=== PATIENT | female | born 1940 | race Caucasian/White ===

== ENCOUNTER → 2017-09-08 07:00 | Outpatient (CLI) | payer MEDICARE, SELFPAY ==
[2017-09-08 07:36] LABS: Absolute Lymphocyte Count 1.87 X10^3/ul (0.83-4.51); Absolute Neutrophil Count 3.3 X10^3/uL (2.0-7.7); Basophil# 0.01 X10^3/uL; Basophil% 0.2 % (0-1); Eosinophil# 0.13 X10^3/uL; Eosinophils% 2.3 % (0-5); Hematocrit 42.3 % (37-47); Hemoglobin 13.7 g/dl (12.0-15.0); Lymphocyte # 1.87 X10^3/ul (4.0); Lymphocyte % 33.2 % (19-41); Mean Corp Hgb Conc 32.4 g/gl (32-36); Mean Corpuscular Hgb 29.3 pg (27.0-32.0); Mean Corpuscular Volume 90.4 fL (81-99); Mean Platelet Vol. 10.2 fl (6.2-12.0); Monocyte# 0.34 X10^3/uL; Neutrophil # 3.28 X10^3/uL (2.7-7.7); Neutrophil % 58.3 % (47-70); Platelet Count 183 K/mm3 (150-450); RBC Distribution Width CV 13.3 % (11.6-14.6); RBC Distribution Width SD 43.6 fl (35.1-43.9); Red Blood Count 4.68 M/mm3 (4.2-5.4); White Blood Count 5.6 K/mm3 (4.4-11.0)
[2017-09-08 07:46] LABS: POSITIVE COUNT NO; POSITIVE DIFFERENTIAL NO; POSITIVE MORPHOLOGY NO
[2017-09-08 08:06] LABS: Hemoglobin A1c 6.1 % (4.2-6.3)
[2017-09-08 08:11] LABS: ALB/GLOB Ratio 1.1 RATIO (0.9-2.4); AST(SGOT) 16 U/L (15-37); Alanine Aminotransfer ALT/SGPT 30 U/L (13-56); Albumin, Serum 3.7 g/dL (3.2-5.0); Alkaline Phosphatase 125 U/L (45-117); Anion Gap 7 (5-15); BUN 18 mg/dL (7-18); Calcium,Total 8.9 mg/dL (8.5-10.1); Chloride 106 mmol/L (98-107); Cholesterol 182 mg/dL (200); EST Glomerular Filtration Rate 65 mL/min (>60); Est Glom Filt Rate - Afr Amer 78 mL/min (>60); Globulin 3.5 g/dL (2.2-4.2); Glucose 101 mg/dL (74-106); High Density Lipoprotein 46 mg/dL; Protein, Total 7.2 g/dL (6.4-8.2); Sodium Level 139 mmol/L (136-145); Thyroid Stim Hormone (TSH) 2.37 uIU/mL (0.358-3.74); Triglycerides 179 mg/dL; Very Low Density Lipoprotein 36 mg/dL (5-40)
[2017-09-10 09:57] LABS: Vitamin D,25 Hydroxy 19.5 ng/mL (29.95-100.01)
[2017-09-17 16:10] LABS: Alkaline Phosphatase, Serum 113 IU/L (39-117); Bone Fraction 51 % (14-68); Liver Fraction 47 % (18-85)
[2017-09-17 16:41] LABS: Intestinal Fraction 1 % (0-18)
== END ==
PROVIDERS: Family Provider Physician Assistant; PCP Physician Assistant; Visit Provider Physician Assistant
DX: E78.5 Hyperlipidemia, unspecified (principal); E55.9 Vitamin D deficiency, unspecified; R73.03 Prediabetes; Z79.899 Other long term (current) drug therapy
CPT/HCPCS: 36415; 80053; 80061; 82306; 83036; 84075; 84080; 84443; 85025

== ENCOUNTER → 2017-12-21 09:51 | Outpatient (CLI) | payer MEDICARE, SELFPAY ==
[2017-12-21 10:40] LABS: Alkaline Phosphatase 112 U/L (45-117)
== END ==
PROVIDERS: Family Provider Physician Assistant; PCP Physician Assistant; Visit Provider Physician Assistant
DX: R74.8 Abnormal levels of other serum enzymes (principal)
CPT/HCPCS: 36415; 84075

== ENCOUNTER → 2018-03-07 06:41 | Outpatient (CLI) | payer MEDICARE, SELFPAY ==
[2018-03-07 07:48] LABS: BUN 20 mg/dL (7-18); Creatinine, Serum 0.86 mg/dL (0.55-1.02); Glucose 102 mg/dL (74-106)
[2018-03-07 07:49] LABS: ALB/GLOB Ratio 1.1 RATIO (0.9-2.4); AST(SGOT) 14 U/L (15-37); Alanine Aminotransfer ALT/SGPT 25 U/L (13-56); Albumin, Serum 3.7 g/dL (3.2-5.0); Alkaline Phosphatase 98 U/L (45-117); Anion Gap 8 (5-15); BUN/Creat Ratio 23.3 RATIO (10-20); Calcium,Total 8.7 mg/dL (8.5-10.1); Chloride 104 mmol/L (98-107); Cholesterol 216 mg/dL (200); EST Glomerular Filtration Rate 68 mL/min (>60); Est Glom Filt Rate - Afr Amer 82 mL/min (>60); Globulin 3.5 g/dL (2.2-4.2); High Density Lipoprotein 58 mg/dL; Protein, Total 7.2 g/dL (6.4-8.2); Sodium Level 138 mmol/L (136-145); Triglycerides 191 mg/dL; Very Low Density Lipoprotein 38 mg/dL (5-40)
[2018-03-07 07:55] LABS: Hemoglobin A1c 5.9 % (4.2-6.3)
[2018-03-07 08:55] LABS: Vitamin D,25 Hydroxy 54.6 ng/mL (29.95-100.01)
== END ==
PROVIDERS: Family Provider Physician Assistant; PCP Physician Assistant; Referring Provider Physician Assistant; Visit Provider Physician Assistant
DX: E55.9 Vitamin D deficiency, unspecified (principal); E78.2 Mixed hyperlipidemia; R73.03 Prediabetes
CPT/HCPCS: 36415; 80053; 80061; 82306; 83036

== ENCOUNTER → 2018-04-06 07:53 | Outpatient (CLI) | payer MEDICARE, SELFPAY ==
[2018-04-05 13:52] VITALS: BMI 32.3
== END ==
PROVIDERS: Family Provider Physician Assistant; PCP Physician Assistant; Referring Provider Surgery; Visit Provider Surgery
DX: Z12.11 Encounter for screening for malignant neoplasm of colon (principal)
CPT/HCPCS: 82274

== ENCOUNTER → 2020-02-11 14:44 | Outpatient (CLI) | payer MEDICARE, SELFPAY ==
[2018-09-04 09:05] VITALS: BMI 32.8
--- NOTE | 2020-02-11 14:55 | CT_ITS ---
STUDY: CT UPPER EXTREMITY WITHOUT CONTRAST INJECTION RIGHT REASON FOR EXAM: Female, 79 years old. PAIN AND IMMOBILITY. RADIATION DOSAGE (If Supplied By Facility): CTDIvol = ( 24.58 ) mGy, DLP = ( 511.44 ) mGycm. Individualized dose optimization techniques were used for this CT.? TECHNIQUE: Optimal axial images of the wrists were obtained from the distal radius and ulna to the metacarpophalangeal joints. Sagittal coronal reformatted images are performed. COMPARISON: None. FINDINGS: The bones are osteopenic. There is mild degenerative change within the radial carpal joint. There is subchondral cyst formation at the distal radius. The radial ulnar joint appears grossly normal. On the sagittal view there is partial visualization of what appears to be chondrocalcinosis or partial calcification of the joint space. This is seen on image #31. The carpal bones show evidence of degenerative change. Within the knee and the scaphoid joint space there are visualized small subchondral cysts. There is mild degenerative change at the first carpometacarpal joint. There is also narrowing of the trapezoid with the second digit. On the sagittal view there is a cleft and/or age-indeterminate possible prior fracture of the ventricular atrium only seen on the sagittal view image #34. There is mild soft tissue edema at the level of the digit without evidence of underlying focal fluid collection. The soft tissues, ligaments and visualized tendons show no visualized evidence of fluid collection or obvious enlargement. CT/Extremity Upper without Contra IMPRESSION: Question the possibility of prior triquetral fracture. Recommend consideration for follow-up MRI. Degenerative change of the radiocarpal joint which can be associated with rheumatoid arthritis and/or osteoarthritis appropriate setting. There is a subtle visualization of calcification at the wrist joint which could represent chondrocalcinosis which can be associated with arthritides such as pyrophosphate disease or hypercalcemic states and associated with osteoarthritis and/or the aging process. Electronically Signed: Ayah Razo MD at 6:09 EDT Tel , Service support ,
== END ==
PROVIDERS: PCP Physician Assistant; Referring Provider Physician Assistant; Visit Provider Physician Assistant
DX: M25.531 Pain in right wrist (principal); M81.0 Age-related osteoporosis without current pathological fracture
CPT/HCPCS: 73200

== ENCOUNTER → 2020-03-06 06:57 | Outpatient (CLI) | payer MEDICARE, SELFPAY ==
[2018-09-04 09:05] VITALS: BMI 32.8
[2020-03-06 08:52] LABS: ALB/GLOB Ratio 1.1 RATIO (0.9-2.4); AST(SGOT) 17 U/L (15-37); Alanine Aminotransfer ALT/SGPT 40 U/L (13-56); Albumin, Serum 3.8 g/dL (3.2-5.0); Alkaline Phosphatase 100 U/L (45-117); Anion Gap 6 (5-15); BUN 15 mg/dL (7-18); BUN/Creat Ratio 16.7 RATIO (10-20); Calcium,Total 9.1 mg/dL (8.5-10.1); Chloride 103 mmol/L (98-107); Cholesterol 188 mg/dL (200); EST Glomerular Filtration Rate 64 mL/min (>60); Est Glom Filt Rate - Afr Amer 78 mL/min (>60); Globulin 3.6 g/dL (2.2-4.2); Glucose 95 mg/dL (74-106); High Density Lipoprotein 55 mg/dL; Potassium 3.9 mmol/L (3.5-5.1); Protein, Total 7.4 g/dL (6.4-8.2); Sodium Level 136 mmol/L (136-145); Triglycerides 201 mg/dL; Very Low Density Lipoprotein 40 mg/dL (5-40)
[2020-03-06 09:29] LABS: Vitamin D,25 Hydroxy 47.6 ng/mL
[2020-03-06 12:12] LABS: Hemoglobin A1c 5.8 % (3.8-5.6)
== END ==
LOC: LAB.FUTURE 06:58 → LAB 09-05 00:18
PROVIDERS: PCP Physician Assistant; Referring Provider Physician Assistant; Visit Provider Physician Assistant
DX: R73.03 Prediabetes (principal); M51.36 Other intervertebral disc degeneration, lumbar region; M17.31 Unilateral post-traumatic osteoarthritis, right knee; E78.2 Mixed hyperlipidemia; E55.9 Vitamin D deficiency, unspecified
CPT/HCPCS: 36415; 80053; 80061; 82306; 83036

== ENCOUNTER → 2020-04-08 10:38 | Outpatient (CLI) | payer MEDICARE, SELFPAY ==
[2020-03-23 08:35] VITALS: BMI 34.2
--- NOTE | 2020-04-08 10:41 | ECHOCS_ITS ---
Version 2 Reason For Study: HYPERTENSION Procedure This was a 2D Doppler, Color Flow transthoracic echocardiogram. The study was technically difficult. Exam performed in department. Left Ventricle Normal LV size. Left ventricular systolic function is normal. The estimated ejection fraction is 65 %. Stage 1 diastolic dysfunction. Right Ventricle Normal RV size. Normal systolic function. Atria Normal left atrium. Normal right atrium. Mitral Valve Normal mitral valve. Tricuspid Valve Normal tricuspid valve. Mild tricuspid valve insufficiency. Pulmonary artery systolic pressure is 25 mmHg. Aortic Valve The aortic valve is not well visualized. Pulmonic Valve Normal pulmonic valve. Great Vessels Normal aortic root. The pulmonary artery is normal size. Normal inferior vena cava. Pericardium/Pleural No pericardial effusion. Medication 22 gauge I.V. with prn adaptor inserted into left arm. Diluted definity 6ml given slow IV push to enhance endocardial definition. MMode/2D Measurements & Calculations LVIDd: 4.6 cm IVSd: 0.97 cm Ao root diam: 3.1 cm LVIDs: 3.1 cm LVPWd: 1.0 cm RVDd: 3.5 cm FS: 31.9 % LAV(MOD-bp): 42.3 ml LVAd ap4: 18.7 cm2 SV(MOD-sp4): 32.4 ml LAV(MOD-bp) Indexed: 20.7 ml/m2 EDV(MOD-sp4): 49.5 ml LAV(MOD-sp2): 43.4 ml EDV(sp4-el): 51.2 ml LAV(MOD-sp4): 37.3 ml LVAs ap4: 10.2 cm2 ESV(MOD-sp4): 17.1 ml ESV(sp4-el): 17.0 ml EF(MOD-sp4): 65.4 % EF(sp4-el): 66.9 % SV(sp4-el): 34.2 ml LA A4 area: 15.5 cm2 LA dimension(2D): 4.2 cm RA A4 area: 15.5 cm2 Time Measurements MV dec time: 0.22 sec Doppler Measurements & Calculations MV E max redd: 49.1 cm/sec Lat Peak E' Redd: 11.1 cm/sec Med Peak E' Redd: 6.0 cm/sec MV A max redd: 62.7 cm/sec E/E' lat: 4.4 E/E' med: 8.2 MV E/A: 0.78 Ao V2 max: 120.7 cm/sec LV V1 max: 73.5 cm/sec PA V2 max: 79.7 cm/sec Ao max P.8 mmHg LV V1 max P.2 mmHg PI end-d redd: 84.0 cm/sec TR max redd: 236.7 cm/sec TR max P.4 mmHg Interpretation Summary Normal LV size. Left ventricular systolic function is normal. The estimated ejection fraction is 65 %. Stage 1 diastolic dysfunction. Pulmonary artery systolic pressure is 25 mmHg. Contrast injection was performed. Ordering Physician: Bakari Mcfarland Referring Physician: JOSEPH COON Performed By: Judy Sandoval RDCS
== END ==
PROVIDERS: PCP Physician Assistant; Referring Provider Internal Medicine Cardiovascular Disease; Visit Provider Internal Medicine Cardiovascular Disease
DX: R94.31 Abnormal electrocardiogram [ECG] [EKG] (principal); I10 Essential (primary) hypertension
CPT/HCPCS: 93306; Q9957; A4216; C8929

== ENCOUNTER 2020-06-26 09:00 | Inpatient (IN) | payer MEDICARE, SELFPAY ==
[2020-03-23 08:35] VITALS: BMI 34.2
[2020-06-26] VITALS (11 sets, daily range): BP systolic 125–162; BP diastolic 54–70; PULSE 87–104; RESP 16–28; TEMP 36.6–37.3; O2SAT 86–97; BMI 32.1; BMI 29.5
--- NOTE | 2020-06-26 09:36 | EKG12_ITS ---
Test Reason : Blood Pressure : / mmHG Vent. Rate : 088 BPM Atrial Rate : 088 BPM P-R Int : 194 ms QRS Dur : 084 ms QT Int : 360 ms P-R-T Axes : 039 -11 016 degrees QTc Int : 435 ms Normal sinus rhythm Minimal voltage criteria for LVH, may be normal variant Borderline ECG Confirmed by ZACK GUEVARA, YAN ([id number]), newspaper copy editor LILLY DE LA ROSA ([id number]) on 06/29/2020 8:17:27 AM Referred By: RINA Confirmed By:YAN DIXON MD
--- NOTE | 2020-06-26 09:36 | RAD_ITS ---
STUDY: X-RAY CHEST REASON FOR EXAM: Female, 79 years old. covid positive TECHNIQUE: Single AP portable view of the chest. COMPARISON: 05/22/2011 FINDINGS: The lungs are clear and expanded. There is no demonstrated pleural abnormality. Normal size heart. Normal mediastinum and jeffrey. Normal visualized pulmonary arteries. Normal visualized aortic arch and descending thoracic aorta. Normal visualized thoracic spine. Normal visualized ribs, clavicles, and shoulders. There is no demonstrated abnormality of the visualized soft tissue structures of the upper abdomen. RAD/Chest 1 View (Portable) IMPRESSION: Normal x-ray examination of the chest. Electronically Signed: Carlton Guerra MD at 11:04 EST Tel , Service support ,
--- NOTE | 2020-06-26 10:39 | ED.VISSUMM ---
- ER Visit Summary Date of Service: 06/26/20 Chief Complaint: Fever History of Present Illness: The patient is a 79 F who presents with fever, nausea, vomiting, diarrhea, and weakness that has been getting worse over the past 1-1/2 weeks. Patient states she has been having some generalized weakness. Patient states she has been having some watery diarrhea. Patient states her fever has been up to 101 at home. Patient also admits to subjective chills. Patient admits to a cough with some johnson sputum. Patient denies any chest pain. Patient denies any shortness of breath. Physical Examination: Vital signs are stable. Patient is afebrile. Patient is in no acute distress. Oral mucosa is pink and moist. Neck is supple. Trachea is midline. There is no JVD noted. Heart was regular rate and rhythm. Lungs are clear diminished in the bases bilaterally. Abdomen is soft. Bowel sounds are normal. There is no tenderness. There is no rebound or guarding noted. Skin is warm dry. Cranial nerves II through XII are intact. There are no focal motor or sensory deficits noted. Extremities are intact. There is no calf tenderness or edema. Test Results: EKG was obtained. On my interpretation, there is a normal sinus rhythm with a rate of 88. There are no acute ST or T wave changes. Portable 1 view chest x-ray was obtained. On my interpretation, lung schumacher are clear. There is normal cardiac silhouette. Bony thorax is normal. There is no acute process noted.. Radiologist also interpreted the x-ray and agrees. CBC shows a white blood cell count of 2.9 and a platelet count of 124. Comprehensive metabolic profile was essentially within normal limits. Lactate was Emergency Department Course and Treatment: Patient was given albuterol inhaler here. Patient was given 500 cc bolus of normal saline. Patient's pulse oximeter on room air dropped to 86% while lying in bed. Patient was given a dose of Decadron. Case was discussed with the hospitalist, Dr Ibanez. He will admit the patient to his service. Patient understood and was agreeable with the plan. All questions were answered. Disposition: Admit to hospital Impression: 1. COVID-19 2. Hypoxia This note was generated with worldhistoryprojectation software. It may contain incorrect words, spelling, and punctuation that were not noted in review of the chart prior to signing ED Disposition - Plan for ED Patient: Disposition: Acute Care Hospital [facility] Diagnosis: COVID-19, Hypoxia Referrals: Valerie Garcia, PA [Primary Care Provider] -
[2020-06-26] MEDS: Acetaminophen 500 MG Tablet 1000 MG PO (11:05)
[2020-06-26 11:55] LABS: Absolute Lymphocyte Count 0.42 X10^3/uL (0.83-4.51); Absolute Neutrophil Count 2.2 X10^3/uL (2.0-7.7); Hematocrit 37.1 % (37-47); Hemoglobin 12.2 g/dL (12.0-15.0); Lymphocyte # 0.42 X10^3/ul (4.0); Lymphocyte % 14.7 % (19-41); Mean Corp Hgb Conc 32.9 g/dL (32-36); Mean Corpuscular Hgb 29.2 pg (27.0-32.0); Mean Corpuscular Volume 88.8 fL (81-99); Mean Platelet Vol. 10.3 fl (6.2-12.0); NRBC Flagged by Analyzer 0 % (0-5); Neutrophil # 2.22 X10^3/uL (2.7-7.7); Neutrophil % 77.6 % (47-70); POSITIVE DIFFERENTIAL YES; Platelet Count 124 K/mm3 (150-450); RBC Distribution Width CV 13.1 % (11.6-14.6); RBC Distribution Width SD 42.8 fl (35.1-43.9); Red Blood Count 4.18 M/mm3 (4.2-5.4); White Blood Count 2.9 K/mm3 (4.4-11.0)
[2020-06-26 11:56] LABS: Differential Indicated SCAN CRITERIA MET
[2020-06-26 12:16] LABS: ALB/GLOB Ratio 0.9 RATIO (0.9-2.4); AST(SGOT) 56 U/L (15-37); Alanine Aminotransfer ALT/SGPT 53 U/L (13-56); Albumin, Serum 3.2 g/dL (3.2-5.0); Alkaline Phosphatase 96 U/L (45-117); Anion Gap 9 (5-15); BUN 18 mg/dL (7-18); BUN/Creat Ratio 23.2 RATIO (10-20); Calcium,Total 8.2 mg/dL (8.5-10.1); Chloride 102 mmol/L (98-107); Creatinine, Serum 0.78 mg/dL (0.55-1.02); EST Glomerular Filtration Rate 76 mL/min (>60); Est Glom Filt Rate - Afr Amer 92 mL/min (>60); Estimated Creatinine Clearance 44.36 ml/min; Globulin 3.5 g/dL (2.2-4.2); Glucose 127 mg/dL (74-106); Potassium 3.5 mmol/L (3.5-5.1); Protein, Total 6.7 g/dL (6.4-8.2); Sodium Level 134 mmol/L (136-145)
[2020-06-26] MEDS: dexAMETHasone 10 MG/ML Vial IV (12:23)
[2020-06-26 13:04] LABS: Lactic Acid 1.4 mmol/L (0.4-1.9)
--- NOTE | 2020-06-26 13:31 | ED.RN ---
NOTIFIED PT FAMILY ABOUT PT ROOM ASSIGNMENT.
--- NOTE | 2020-06-26 13:35 | HP.PCM_ITS ---
Problem List (1) COVID-19 Status: Acute (2) Hypoxia Status: Acute (3) Essential (primary) hypertension Status: Chronic (4) Hyperlipidemia Status: Chronic History of Present Illness Date of Admission: 06/26/20 Chief Complaint: shortness of breath The patient is a 79 year old F presents with shortness of breath. Patient said that she became ill about a week ago and since then has been having fever and chills, shortness of breath. Patient's had been sick about 2 weeks prior and they both were tested for COVID-19 on Sunday which came back positive. Patient just has progressively gotten worse. Patient was not initially hypoxic but was found to be 85% on room air at rest and placed on oxygen. Patient chest x-ray was suggestive of COVID-19 the patient did receive a dexamethasone. Patient not noticing any significant provement at this time. Patient is unsure how she contracted Covid but also when sure how her contracted Covid. Patient's is also in the emergency room with her today and he is actually being discharged home. [] Past Medical History Past Medical History (Chronic Problems): Chronic Problems (Last Reviewed 03/23/20 @ 11:[address] Bakari Mcfarland MD) Essential (primary) hypertension (Chronic) Hyperlipidemia (Chronic) Medical History: Medical History (Last Reviewed 06/26/20 @ 13:[address] Jean Claude Ibanez DO) Essential (primary) hypertension (Chronic) I10 Hyperlipidemia (Chronic) E78.5 Allergic rhinitis J30.9 Anxiety F41.9 BCC (basal cell carcinoma of skin) C44.91 BPPV (benign paroxysmal positional vertigo) H81.10 Colon polyps K63.5 DDD (degenerative disc disease) GERD (gastroesophageal reflux disease) K21.9 Hearing loss H91.90 Lichen sclerosus of female genitalia N90.4 Obesity E66.9 Osteoarthritis M19.90 Spondylosis M47.9 Allergies Iodinated Contrast Media [Iodinated Contrast Media - IV Dye] Allergy (Verified 03/23/20 10:54) Vomiting Sulfa (Sulfonamide Antibiotics) Allergy (Verified 03/23/20 10:54) Rash alendronate sodium [From Fosamax] Adverse Reaction (Verified 03/23/20 10:54) unknown aliskiren [From Tekturna] Adverse Reaction (Verified 03/23/20 10:54) Unknown amoxicillin [From Trimox] Adverse Reaction (Verified 03/23/20 10:54) Unknown atenolol Adverse Reaction (Verified 03/23/20 10:54) Unknown escitalopram [From Lexapro] Adverse Reaction (Verified 03/23/20 10:54) Unknown hydrochlorothiazide Adverse Reaction (Verified 03/23/20 10:54) Unknown ibuprofen Adverse Reaction (Verified 03/23/20 10:54) Unknown lansoprazole [From Prevacid] Adverse Reaction (Verified 03/23/20 10:54) Unknown lisinopril Adverse Reaction (Verified 03/23/20 10:54) Unknown nickel Adverse Reaction (Verified 03/23/20 10:54) Unknown prednisone Adverse Reaction (Verified 03/23/20 10:54) Other i got really red risedronate sodium [From Actonel] Adverse Reaction (Verified 03/23/20 10:54) Unknown sertraline [From Zoloft] Adverse Reaction (Verified 03/23/20 10:54) Unknown Home Medications: Ambulatory Orders Medication Instructions Recorded Aspirin [Aspirin, Baby] 81 mg PO DINNER 05/26/14 Cetirizine HCl [Zyrtec] 10 mg PO DAILY 05/26/14 Clonazepam [Klonopin] 0.5 mg PO BID 05/26/14 baclofen 10 mg tablet 10 mg PO TID PRN tab 08/23/18 amlodipine 5 mg tablet 5 mg PO DAILY #90 tab 08/28/19 losartan 50 mg tablet 50 mg PO BID #180 tab 08/28/19 metoprolol succinate 25 mg 25 mg PO BID #180 tab 08/28/19 tablet,extended release 24 hr simvastatin 20 mg tablet 20 mg PO QHS #90 tab 08/28/19 calcium carbonate 200 mg calcium 200 mg PO BID 03/23/20 (500 mg) chewable tablet cholecalciferol (vitamin D3) 1,250 50,000 unit PO .QOWeek cap 03/23/20 mcg (50,000 unit) capsule Surgical History: Surgical History (Last Reviewed 06/26/20 @ 13:[address] Jean Claude Ibanez, DO) H/O basal cell carcinoma excision Z98.890, Z85.828 History of cataract surgery Z98.49 History of tubal ligation Z98.51 Surgical History: - - Cataract surgery. Psychiatric History: Anxiety [employer] History: No pertinent [employer] history Smoking Status: Never smoker - *Family History Maternal Family History: Family History (Last Reviewed 06/26/20 @ 13:[address] Jean Claude Ibanez DO) Mother Breast cancer Hypertension Father Heart disease Sister Heart disease Hypertension Brother Heart disease History Items: Heart Disease Paternal Family History: Family History (Last Reviewed 06/26/20 @ 13:[address] Jean Claude Ibanez DO) Mother Breast cancer Hypertension Father Heart disease Sister Heart disease Hypertension Brother Heart disease History Items: Heart Disease Review of Systems Constitutional: Reports: Chills, Malaise, Weakness. Denies: Anorexia, Fever, Night Sweats Eyes: Denies: Blurred vision, Double vision HEENT: Denies: Head Aches, Sinus Congestion, Sinus Drainage Cardiovascular: Denies: Chest Pain, Palpitations Respiratory: Reports: Shortness of Breath. Denies: Cough, Sputum production Gastrointestinal: Denies: Abdominal Pain, Nausea, Vomiting Genitourinary: Denies: Dysuria Musculoskeletal: Denies: Joint Pain, Joint Tenderness Skin: Denies: Rash, Wounds Neurological: Denies: Numbness, Tingling, Focal weakness Psychiatric: Denies: Anxiety, Depression Hematologic/ Lymphatic: Denies: Easy Bruising, Easy Bleeding, Hx of blood clot Comment: All review of systems were negative except as mentioned above in the history of present illness and the other review of systems. VTE Information - Inpt Only VTE Present on Admission: No VTE Mechan Device Prophylaxis: None VTE Pharm Prophylaxis ordered?: Yes Patient Problems: Active and Suspected Problems (Last Reviewed 03/23/20 @ 11:[address] Bakari Mcfarland MD) COVID-19 (Acute) Hypoxia (Acute) - Physical Exam Vitals/I&O's: Vital Signs Temp Pulse Resp BP Pulse Ox 37.1 C 89 25 H 151/60 H 93 06/26/20 13:22 06/26/20 13:22 06/26/20 13:22 06/26/20 13:22 06/26/20 13:22 Oxygen Flow Rate (L/min) 2 Oxygen Delivery Method Nasal Cannula Weight: 92.986 kg Body Mass Index (BMI) 32.1 General: Alert, Cooperative, No apparent distress HEENT: Atraumatic, PERRLA, EOMI, Normocephalic Oral: Moist Mucosa, No Gingival or Mucosal Lesions/ Ulcerations Neck: No Nodes, Thyroid Normal Size and Texture Lungs: Normal air movement, - - Bilateral crackles Cardiovascular: Regular rate, Regular Rhythm, Normal S1, Normal S2, No murmurs Abdomen: Bowel Sounds Present, Soft, Non Tender, Non-Distended, No Hepato- splenomegaly Extremities: No edema, No Calf Tenderness Skin: No rashes, No breakdown Psych/Mental Status: Normal Affect, Appropriate, - - Hard of hearing Laboratory Results 06/26/20 11:40: WBC 2.9 L, RBC 4.18 L, Hgb 12.2, Hct 37.1, MCV 88.8, MCH 29.2, MCHC 32.9, RDW Std Deviation 42.8, RDW Coeff of Glenn 13.1, Plt Count 124 L, MPV 10.3, Immature Gran % (Auto) 0.700, Neut % (Auto) 77.6 H, Lymph % (Auto) 14.7 L, [place] % (Auto) 7.0, Eos % (Auto) 0.0, Baso % (Auto) 0.0, Absolute Neuts (auto) 2.2, Absolute Lymphs (auto) 0.42 L, Nucleated RBC % 0, Diff Path Review September06/26/20 11:40: Sodium 134 L, Potassium 3.5, Chloride 102, Carbon Dioxide 23.0, Anion Gap 9, BUN 18, Creatinine 0.78, Estim Creat Clear Calc 44.36, Est GFR (MDRD) Af Amer 92, Est GFR (MDRD) Non-Af 76, BUN/Creatinine Ratio 23.2 H, Glucose 127 H, Calcium 8.2 L, Total Bilirubin 0.50, AST 56 H, ALT 53, Alkaline Phosphatase 96, Total Protein 6.7, Albumin 3.2, Globulin 3.5, Albumin/Globulin Ratio 0.9 06/26/20 11:40: Lactic Acid 1.4 EKG reviewed and showed normal sinus rhythm with no acute changes. Chest x-ray showed bilateral patchy infiltrates. Assessment/Plan All Active Problems (Last Reviewed 03/23/20 @ 11:[address] Bakari Mcfarland MD) COVID-19 (Acute) Hypoxia (Acute) 1. Acute hypoxic respiratory insufficiency: Secondary to COVID-19. Tolerating 2 L of oxygen currently. Wean oxygen as tolerated. 2. Acute COVID-19 pneumonia: Date of onset is June 20. Patient will be on dexamethasone as well as remdesivir. Patient will need to quarantine through July 10. Patient likely contracted it through her to was feeling sick 2 weeks prior after receiving code vaccination. 3. Hypertension: Continue with losartan, amlodipine and metoprolol. 4. VTE prophylaxis with low molecular weight heparin. Refer to NIH guidelines (https://www.c llio85zmayibgxpzubtiwtewj.nih.gov/adjunctive-therapy/antithrombotic-therapy/) and Chest guidelines (CHEST 2020; 158(3): 6283-5463). Inpatient E&M: 07050 Init Hosp L2
[2020-06-26 14:52] LABS: Alkaline Phosphatase 94 U/L (45-117); D-Dimer Quantitative (DVT/PE) 1.09 FEU/ug/m (0.27-0.49)
[2020-06-26] MEDS: 0.9% Saline Lock 10 ML Syringe IV (15:14)
[2020-06-26] MEDS: predniSONE 20 MG Tablet 50 MG PO ×2 (16:04→20:48)
[2020-06-26] MEDS: Enoxaparin 100 MG/ML Syringe 90 MG SC (16:04)
[2020-06-26] MEDS: Aspirin 81 MG TAB.CHEW PO (16:05)
[2020-06-26] MEDS: Metoprolol(XL)Succ 25 MG Tablet PO (20:49)
[2020-06-26] MEDS: clonazePAM 0.5 MG Tablet PO (20:49)
[2020-06-26] MEDS: Calcium Carbonate 500 MG Tablet PO (20:49)
[2020-06-26] MEDS: Atorvastatin Calcium 10 MG Tablet PO (20:49)
[2020-06-26] MEDS: Losartan Potassium 50 MG Tablet PO (20:49)
[2020-06-27] VITALS (9 sets, daily range): BP systolic 138–152; BP diastolic 55–71; PULSE 72–88; RESP 16–18; TEMP 36.3–36.7; O2SAT 90–94
[2020-06-27] MEDS: predniSONE 20 MG Tablet 50 MG PO (03:40)
[2020-06-27] MEDS: DiphenhydrAMINE 50 MG/ML Syringe IV (03:40)
--- NOTE | 2020-06-27 05:00 | CT_ITS ---
HISTORY: SOB X 1 WK, COVID, FEVER, CHILLS. TECHNIQUE: Helically acquired images were obtained of the chest following the intravenous administration of 100 ML of Isovue-370 Iodinated contrast. as per pulmonary angiogram protocol with 2D , without 3-D MIP reconstructions. A radiation dose optimization technique was used for this scan. COMPARISON: Most recent comparison chest x-ray is from 6-1/[address] scan of the abdomen and pelvis was performed on September 15, 2011. That study began at the level of the aortic valve FINDINGS: # of images incl. paperwork: 1148 Multifocal bilateral rounded groundglass air space disease. . No effusions. Within the thoracic spinekyphoscoliosis. Multilevel degenerative disc disease. Many bridging enthesophytes. Vertebral body height mostly normal. Mild wedging at T10 and T11. 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 No rib lesions are perceived. Heart is not enlarged. Thoracic aorta is normal. No aneurysms, stenoses, dissections, nor occlusions. Mediastinal and hilar adenopathy : No pulmonary emboli are identified, the negative predictive value of this study is diminished due to diffuse contrast bolus, and respiratory motion, especially within the lung bases causing registration artifact. Visualized portions of the upper abdomen are without identified acute pathology. CT/CTA Chest W/WO Contrast IMPRESSION: No pulmonary embolism, aortic aneurysm, or aortic dissection. Decreased negative predictive value of this study to exclude pulmonary embolism due to the diffuse nature of the contrast bolus, and respiratory motion causing registration artifact. Multifocal bilateral air space disease involving all 5 lobes of the lungs consistent with pneumonia. In the setting of the global pandemic of Covid 19, this likely represents Covid 19 pneumonia Individualized dose optimization techniques were used for this CT. at 0536 Reported and signed by: Ghassan Phillip MD Electronically Signed: Ghassan Phillip MD at 5:35 EST Tel , Service support ,
[2020-06-27] MEDS: Enoxaparin 100 MG/ML Syringe 90 MG SC (05:45)
[2020-06-27 07:38] LABS: Hematocrit 36.2 % (37-47); Hemoglobin 11.7 g/dL (12.0-15.0); Mean Corp Hgb Conc 32.3 g/dL (32-36); Mean Corpuscular Hgb 28.7 pg (27.0-32.0); Mean Corpuscular Volume 88.7 fL (81-99); Mean Platelet Vol. 10.1 fl (6.2-12.0); Platelet Count 144 K/mm3 (150-450); RBC Distribution Width SD 42.3 fl (35.1-43.9); Red Blood Count 4.08 M/mm3 (4.2-5.4); White Blood Count 3.6 K/mm3 (4.4-11.0)
[2020-06-27] MEDS: Losartan Potassium 50 MG Tablet PO ×2 (07:43→21:46)
[2020-06-27] MEDS: Loratadine 10 MG Tablet PO (07:43)
[2020-06-27] MEDS: Metoprolol(XL)Succ 25 MG Tablet PO ×2 (07:43→21:46)
[2020-06-27] MEDS: dexAMETHasone 4 MG Tablet 6 MG PO (07:43)
[2020-06-27] MEDS: amLODIPine 5 MG Tablet PO (07:43)
[2020-06-27] MEDS: Calcium Carbonate 500 MG Tablet PO ×2 (07:44→21:46)
[2020-06-27] MEDS: clonazePAM 0.5 MG Tablet PO ×2 (07:52→21:52)
[2020-06-27 08:16] LABS: ALB/GLOB Ratio 0.8 RATIO (0.9-2.4); AST(SGOT) 51 U/L (15-37); Alanine Aminotransfer ALT/SGPT 56 U/L (13-56); Albumin, Serum 2.7 g/dL (3.2-5.0); Alkaline Phosphatase 99 U/L (45-117); Anion Gap 6 (5-15); BUN 20 mg/dL (7-18); BUN/Creat Ratio 30.7 RATIO (10-20); Calcium,Total 8.5 mg/dL (8.5-10.1); Chloride 105 mmol/L (98-107); Creatinine, Serum 0.65 mg/dL (0.55-1.02); EST Glomerular Filtration Rate 93 mL/min (>60); Est Glom Filt Rate - Afr Amer 113 mL/min (>60); Estimated Creatinine Clearance 44.36 ml/min; Globulin 3.5 g/dL (2.2-4.2); Glucose 175 mg/dL (74-106); Potassium 4.1 mmol/L (3.5-5.1); Protein, Total 6.2 g/dL (6.4-8.2); Sodium Level 136 mmol/L (136-145)
--- NOTE | 2020-06-27 12:29 | PN_ITS ---
Patient Problems: Active and Suspected Problems (Last Reviewed 06/26/20 @ 13:[address] Jean Claude Ibanez, DO) COVID-19 (Acute) Hypoxia (Acute) Subjective: Breathing better. Vitals/I&O's: Vital Signs Temp Pulse Resp BP Pulse Ox 36.3 C L 77 16 138/55 H 92 06/27/20 11:32 06/27/20 11:32 06/27/20 11:32 06/27/20 11:32 06/27/20 11:32 Oxygen Flow Rate (L/min) 4 Oxygen Delivery Method Nasal Cannula Weight: 85.548 kg Body Mass Index (BMI) 29.5 Intake and Output for Last 24 Hours 06/25/20 06/26/20 06/27/20 23:59 23:59 23:59 Intake Total 1400.5 / 1640.5 1534.75 / 1534.75 Balance 1400.5 / 1640.5 1534.75 / 1534.75 General: Alert, No apparent distress HEENT: Atraumatic, Normocephalic Oral: Moist Mucosa, No Gingival or Mucosal Lesions/ Ulcerations Neck: No Nodes, Thyroid Normal Size and Texture Lungs: Clear to auscultation, Normal air movement Cardiovascular: Regular rate, Regular Rhythm, Normal S1, Normal S2, No murmurs Abdomen: Bowel Sounds Present, Soft, Non Tender, Non-Distended, No Hepato- splenomegaly Extremities: No edema, No Calf Tenderness Laboratory Results 06/26/20 11:40: Lactic Acid 1.4 06/26/20 11:40: D-Dimer Quant (PE/DVT) 1.09 H* 06/26/20 11:40: Alkaline Phosphatase 94 06/27/20 07:02: WBC 3.6 L, RBC 4.08 L, Hgb 11.7 L, Hct 36.2 L, MCV 88.7, MCH 28.7, MCHC 32.3, RDW Std Deviation 42.3, RDW Coeff of Glenn 13.0, Plt Count 144 L, MPV 10.1 06/27/20 07:02: Sodium 136, Potassium 4.1, Chloride 105, Carbon Dioxide 25.0, Anion Gap 6, BUN 20 H, Creatinine 0.65, Estim Creat Clear Calc 44.36, Est GFR (MDRD) Af Amer 113, Est GFR (MDRD) Non-Af 93, BUN/Creatinine Ratio 30.7 H, Gluc ose 175 H, Calcium 8.5, Total Bilirubin 0.40, AST 51 H, ALT 56, Alkaline Phosphatase 99, Total Protein 6.2 L, Albumin 2.7 L, Globulin 3.5, Albumin/Globulin Ratio 0.8 L Current Medications Acetaminophen (Acetaminophen 325 Mg Tablet) 650 mg PO Q6H PRN PRN PRN Reason: Pain Score 1-10/Temp > 100.7 F Amlodipine Besylate (Amlodipine 5 Mg Tablet) 5 mg PO DAILY [facility] Last Admin: 06/27/20 07:43 Dose: 5 mg Documented by: Aspirin (Aspirin 81 Mg Tab.Chew) 81 mg PO DINNER [facility] Last Admin: 06/26/20 16:05 Dose: 81 mg Documented by: Atorvastatin Calcium (Atorvastatin Calcium 10 Mg Tablet) 10 mg PO QHS [facility] Last Admin: 06/26/20 20:49 Dose: 10 mg Documented by: Baclofen (Baclofen 10 Mg Tablet) 10 mg PO TID PRN PRN PRN Reason: BACK SPASMS Calcium Carbonate (Calcium Carbonate 500 Mg Tablet) 500 mg PO BID [facility] Last Admin: 06/27/20 07:44 Dose: 500 mg Documented by: Clonazepam (Clonazepam 0.5 Mg Tablet) 0.5 mg PO BID [facility] Last Admin: 06/27/20 07:52 Dose: 0.5 mg Documented by: Dexamethasone (Dexamethasone 4 Mg Tablet) 6 mg PO DAILY [facility] Stop: 07/05/20 10:01 Last Admin: 06/27/20 07:43 Dose: 6 mg Documented by: Enoxaparin Sodium (Enoxaparin 40 Mg/0.4 Ml Syringe) 40 mg SC DAILY [facility] Remdesivir 100 mg/ Sodium (Chloride) 250 mls @ 125 mls/hr IV DAILY [facility] Stop: 06/30/20 11:59 Last Infusion: 06/27/20 11:31 Dose: Infused Documented by: Sodium Chloride () 250 mls @ 15 mls/hr IV .[id number] PRN PRN Reason: Saline Flush Last Infusion: 06/27/20 07:42 Dose: 0 mls/hr Documented by: Sodium Chloride () 250 mls @ 15 mls/hr IV .[id number] PRN PRN Reason: Additional IVPB Infusion Ibuprofen (Ibuprofen 400 Mg Tablet) 400 mg PO Q4H PRN PRN PRN Reason: Pain Score 1-10/Temp > 100.7 F Loratadine (Loratadine 10 Mg Tablet) 10 mg PO DAILY [facility] Last Admin: 06/27/20 07:43 Dose: 10 mg Documented by: Losartan Potassium (Losartan Potassium 50 Mg Tablet) 50 mg PO BID [facility] Last Admin: 06/27/20 07:43 Dose: 50 mg Documented by: Metoprolol Succinate (Metoprolol(Xl)Succ 25 Mg Tablet) 25 mg PO BID [facility] Last Admin: 06/27/20 07:43 Dose: 25 mg Documented by: Ondansetron HCl (Ondansetron 4 Mg/2 Ml Vial) 4 mg IV Q8H PRN PRN PRN Reason: NAUSEA/VOMITING Sodium Chloride (0.9% Saline Lock 10 Ml Syringe) 10 - 40 ml IV UD PRN PRN Reason: SALINE FLUSH Last Admin: 06/26/20 15:14 Dose: 10 ml Documented by: STROKE Vital Signs/Narrative: Vital Signs Temp Pulse Resp BP Pulse Ox 06/27/20 11:32 36.3 C L 77 16 138/55 H 92 Medical Necessity - Tobacco Use Smoking Status: Never smoker Assessment/Plan All Active Problems (Last Reviewed 06/26/20 @ 13:[address] Jean Claude Ibanez, ) COVID-19 (Acute) Hypoxia (Acute) 1. Acute hypoxic respiratory insufficiency: Secondary to COVID-19. Tolerating 2 L of oxygen currently. Wean oxygen as tolerated. CTA was negative for PE 2. Acute COVID-19 pneumonia: Date of onset is June 20. Patient will be on dexamethasone as well as remdesivir. Patient will need to quarantine through July 10. Patient likely contracted it through her to was feeling sick 2 weeks prior after receiving code vaccination. 3. Hypertension: Continue with losartan, amlodipine and metoprolol. 4. VTE prophylaxis with low molecular weight heparin. Refer to NIH guidelines (https://www.ukofa22uyeqlsgxvwlfpechuyu.nih.gov/adjunctive-therapy/a ntithrombotic-therapy/) and Chest guidelines (CHEST 2020; 158(3): 2685-3732). Inpatient E&M: 46538 Subs Hosp L2
[2020-06-27] MEDS: Aspirin 81 MG TAB.CHEW PO (16:34)
[2020-06-27] MEDS: Atorvastatin Calcium 10 MG Tablet PO (21:46)
[2020-06-28] VITALS (8 sets, daily range): BP systolic 139–176; BP diastolic 52–67; PULSE 72–83; RESP 16–18; TEMP 36.4–36.6; O2SAT 91–94
[2020-06-28] MEDS: 0.9% Saline Lock 10 ML Syringe IV (10:40)
[2020-06-28] MEDS: Enoxaparin 40 MG/0.4 ML Syringe SC (10:40)
[2020-06-28] MEDS: dexAMETHasone 4 MG Tablet 6 MG PO (10:40)
[2020-06-28] MEDS: clonazePAM 0.5 MG Tablet PO ×2 (10:41→20:43)
[2020-06-28] MEDS: Calcium Carbonate 500 MG Tablet PO ×2 (10:41→20:43)
[2020-06-28] MEDS: Loratadine 10 MG Tablet PO (10:41)
[2020-06-28] MEDS: Losartan Potassium 50 MG Tablet PO ×2 (10:41→20:43)
[2020-06-28] MEDS: amLODIPine 5 MG Tablet PO (10:41)
[2020-06-28] MEDS: Metoprolol(XL)Succ 25 MG Tablet PO ×2 (10:41→20:42)
--- NOTE | 2020-06-28 11:33 | CASEMGMT ---
RN CM Assessment Note Introduced role of CM to patient's . Patient is very TUSCAROR[place] and not able to speak on phone. Demographics, PCP verified. states patient was weak from illness prior to admission, but otherwise was independent at home. did laundry in basement. Time spent with providing emotional support and update for who was very concerned with how his was doing. - also positive for COVID but is recovering. -Daughter brings groceries, and son, who had covid recently, is able to come and help pt and in home. -COVID TESTING- [facility] Dorothy Presentation: fever, chills and shortness of breath. Diagnosis: COVID 19 PCP: CALIN Garcia Insurance: [facility] HMO Preferred Pharmacy: [facility] Prescription Benefit: yes LNOK: Living Arrangements: Lives in one story home with . Generally independent, but [place]A. able to assist with any care needs, and children are also available. Tranportation: family DME: has walker, does not use. If Home oxygen is needed, [facility]: Jon PULIDO [place] in [place] HHC: no SNF: no Patient DC Goals: Home DC Plan: Anticipate home. Will need to follow for home oxygen and PT/OT evaluations. Pt is currently on 4L NC. CM available for discharge planning coordination. Contact CM for any concerns/needs that may arise. Contreras HORN RN ACM
[2020-06-28 13:38] LABS: Pathologist Review Reviewed
[2020-06-28] MEDS: Aspirin 81 MG TAB.CHEW PO (17:09)
--- NOTE | 2020-06-28 17:12 | PN_ITS ---
Patient Problems: Active and Suspected Problems (Last Reviewed 06/26/20 @ 13:[address] Jean Claude Ibanez, DO) COVID-19 (Acute) Hypoxia (Acute) Subjective: Patient was seen and examined today, she asked me what her diagnosis was, I told her she had Covid pneumonia. Patient is currently on 4 L and appears comfortable at rest, patient denies any chills or fevers. - Physical Exam Vitals/I&O's: Vital Signs Temp Pulse Resp BP Pulse Ox 97.8 F 73 16 139/52 H 94 06/28/20 14:55 06/28/20 14:55 06/28/20 14:55 06/28/20 14:55 06/28/20 14:55 Oxygen Flow Rate (L/min) 4 Oxygen Delivery Method Nasal Cannula Weight: 85.548 kg Body Mass Index (BMI) 29.5 Intake and Output for Last 24 Hours 06/26/20 06/27/20 06/28/20 23:59 23:59 23:59 Intake Total 1400.5 / 1640.5 2134.75 / 2134.75 1915.25 / 1915.25 Balance 1400.5 / 1640.5 2134.75 / 2134.75 1915. / 1915. General: Alert, Oriented x3, Cooperative, No apparent distress, Well developed, - - Hard of hearing HEENT: Atraumatic, PERRLA, EOMI, Normocephalic Oral: Moist Mucosa Neck: Supple, No JVD, Trachea Midline, Thyroid Normal Size and Texture Lungs: Clear to auscultation, Normal air movement, No rhonchi, No wheeze Cardiovascular: Regular rate, Regular Rhythm, Normal S1, Normal S2, No murmurs, PMI Normal Abdomen: Bowel Sounds Present, Soft, Non Tender Extremities: No clubbing, No cyanosis, No edema, Capillary Refill Less than 3 Seconds Skin: No rashes, No breakdown Musculoskeletal: No Tenderness to Palpation of Joints or Extremities Neurological: Cranial nerves II-XII grossly intact, Neuro grossly intact, Sensory exam intact to light touch and pain, Coordination normal Psych/Mental Status: Normal Affect, Appropriate, Alert and oriented to time, place, person, mood and affect Microbiology Past 72 Hours 06/26/20 10:55 Blood Culture (Wb) - Right Wrist Blood Culture - Preliminary No growth in 48 hours. 06/26/20 10:30 Blood Culture (Wb) - Anticubital Left Blood Culture - Preliminary No growth in 48 hours. Laboratory Results 06/26/20 11:40: Diff Path Review Reviewed Current Medications Acetaminophen (Acetaminophen 325 Mg Tablet) 650 mg PO Q6H PRN PRN PRN Reason: Pain Score 1-10/Temp > 100.7 F Amlodipine Besylate (Amlodipine 5 Mg Tablet) 5 mg PO DAILY [facility] Last Admin: 06/28/20 10:41 Dose: 5 mg Documented by: Aspirin (Aspirin 81 Mg Tab.Chew) 81 mg PO DINNER [facility] Last Admin: 06/28/20 17:09 Dose: 81 mg Documented by: Atorvastatin Calcium (Atorvastatin Calcium 10 Mg Tablet) 10 mg PO QHS [facility] Last Admin: 06/27/20 21:46 Dose: 10 mg Documented by: Baclofen (Baclofen 10 Mg Tablet) 10 mg PO TID PRN PRN PRN Reason: BACK SPASMS Calcium Carbonate (Calcium Carbonate 500 Mg Tablet) 500 mg PO BID [facility] Last Admin: 06/28/20 10:41 Dose: 500 mg Documented by: Clonazepam (Clonazepam 0.5 Mg Tablet) 0.5 mg PO BID [facility] Last Admin: 06/28/20 10:41 Dose: 0.5 mg Documented by: Dexamethasone (Dexamethasone 4 Mg Tablet) 6 mg PO DAILY [facility] Stop: 07/05/20 10:01 Last Admin: 06/28/20 10:40 Dose: 6 mg Documented by: Enoxaparin Sodium (Enoxaparin 40 Mg/0.4 Ml Syringe) 40 mg SC DAILY [facility] Last Admin: 06/28/20 10:40 Dose: 40 mg Documented by: Remdesivir 100 mg/ Sodium (Chloride) 250 mls @ 125 mls/hr IV DAILY [facility] Stop: 06/30/20 11:59 Last Infusion: 06/28/20 12:40 Dose: Infused Documented by: Sodium Chloride () 250 mls @ 15 mls/hr IV .[id number] PRN PRN Reason: Saline Flush Last Infusion: 06/28/20 13:45 Dose: 0 mls/hr Documented by: Sodium Chloride () 250 mls @ 15 mls/hr IV .[id number] PRN PRN Reason: Additional IVPB Infusion Ibuprofen (Ibuprofen 400 Mg Tablet) 400 mg PO Q4H PRN PRN PRN Reason: Pain Score 1-10/Temp > 100.7 F Loratadine (Loratadine 10 Mg Tablet) 10 mg PO DAILY [facility] Last Admin: 06/28/20 10:41 Dose: 10 mg Documented by: Losartan Potassium (Losartan Potassium 50 Mg Tablet) 50 mg PO BID [facility] Last Admin: 06/28/20 10:41 Dose: 50 mg Documented by: Metoprolol Succinate (Metoprolol(Xl)Succ 25 Mg Tablet) 25 mg PO BID [facility] Last Admin: 06/28/20 10:41 Dose: 25 mg Documented by: Ondansetron HCl (Ondansetron 4 Mg/2 Ml Vial) 4 mg IV Q8H PRN PRN PRN Reason: NAUSEA/VOMITING Sodium Chloride (0.9% Saline Lock 10 Ml Syringe) 10 - 40 ml IV UD PRN PRN Reason: SALINE FLUSH Last Admin: 06/28/20 10:40 Dose: 20 ml Documented by: Medical Necessity - Tobacco Use Smoking Status: Never smoker Assessment/Plan All Active Problems (Last Reviewed 06/26/20 @ 13:[address] Jean Claude Ibanez, DO) COVID-19 (Acute) Hypoxia (Acute) #1 bilateral Covid pneumonia-continue present treatment #2 hypoxia secondary to #1-continue to monitor pulse ox #3 essential hypertension #4 hyperlipidemia Inpatient E&M: 50154 Subs Hosp L2
[2020-06-28] MEDS: Atorvastatin Calcium 10 MG Tablet PO (20:42)
[2020-06-29] VITALS (10 sets, daily range): BP systolic 148–181; BP diastolic 59–84; PULSE 66–70; RESP 18; TEMP 36.1–36.7; O2SAT 90–94
[2020-06-29] MEDS: clonazePAM 0.5 MG Tablet PO ×2 (09:06→20:47)
[2020-06-29] MEDS: amLODIPine 5 MG Tablet PO (09:06)
[2020-06-29] MEDS: Metoprolol(XL)Succ 25 MG Tablet PO ×2 (09:06→20:47)
[2020-06-29] MEDS: dexAMETHasone 4 MG Tablet 6 MG PO (09:07)
[2020-06-29] MEDS: Calcium Carbonate 500 MG Tablet PO ×2 (09:07→20:47)
[2020-06-29] MEDS: Losartan Potassium 50 MG Tablet PO ×2 (09:07→20:47)
[2020-06-29] MEDS: Enoxaparin 40 MG/0.4 ML Syringe SC (09:07)
[2020-06-29] MEDS: Loratadine 10 MG Tablet PO (09:07)
[2020-06-29] MEDS: 0.9% Saline Lock 10 ML Syringe IV (09:13)
--- NOTE | 2020-06-29 14:11 | PN_ITS ---
Patient Problems: Active and Suspected Problems (Last Reviewed 06/26/20 @ 13:[address] Jean Claude Ibanez, DO) COVID-19 (Acute) Hypoxia (Acute) Subjective: Patient was seen and examined today, she denies any fevers or chills, she denies any increased shortness of breath. - Physical Exam Vitals/I&O's: Vital Signs Temp Pulse Resp BP Pulse Ox 98.0 F 67 18 148/59 H 92 06/29/20 12:25 06/29/20 12:25 06/29/20 12:25 06/29/20 12:25 06/29/20 12:25 Oxygen Flow Rate (L/min) 4 Oxygen Delivery Method Nasal Cannula Weight: 85.548 kg Body Mass Index (BMI) 29.5 Intake and Output for Last 24 Hours 06/27/20 06/28/20 06/29/20 23:59 23:59 23:59 Intake Total 2134.75 / 2134.75 1916.25 / 2316.25 1208 / 1208 Balance 2134.75 / 2134.75 1916.25 / 2316.25 1208 / 1208 General: Alert, Oriented x3, Cooperative, No apparent distress, - - Patient is extremely hard of hearing HEENT: Atraumatic, PERRLA, EOMI, Normocephalic Oral: Moist Mucosa Neck: Supple, No JVD, Trachea Midline, Thyroid Normal Size and Texture Lungs: Clear to auscultation, Normal air movement, No rhonchi, No wheeze Cardiovascular: Regular rate, Regular Rhythm, Normal S1, Normal S2, No murmurs, PMI Normal, No rub noted, No Gallop Abdomen: Bowel Sounds Present, Soft, Non Tender, Non-Distended Extremities: No clubbing, No cyanosis, No edema, Capillary Refill Less than 3 Seconds Skin: No rashes, No breakdown Musculoskeletal: No Tenderness to Palpation of Joints or Extremities Neurological: Cranial nerves II-XII grossly intact, Neuro grossly intact, Sensory exam intact to light touch and pain Psych/Mental Status: Normal Affect, Appropriate, Alert and oriented to time, place, person, mood and affect Microbiology Past 72 Hours 06/26/20 10:55 Blood Culture (Wb) - Right Wrist Blood Culture - Preliminary No growth in 48 hours. 06/26/20 10:30 Blood Culture (Wb) - Anticubital Left Blood Culture - Preliminary No growth in 48 hours. Current Medications Acetaminophen (Acetaminophen 325 Mg Tablet) 650 mg PO Q6H PRN PRN PRN Reason: Pain Score 1-10/Temp > 100.7 F Amlodipine Besylate (Amlodipine 5 Mg Tablet) 5 mg PO DAILY [facility] Last Admin: 06/29/20 09:06 Dose: 5 mg Documented by: Aspirin (Aspirin 81 Mg Tab.Chew) 81 mg PO DINNER [facility] Last Admin: 06/28/20 17:09 Dose: 81 mg Documented by: Atorvastatin Calcium (Atorvastatin Calcium 10 Mg Tablet) 10 mg PO QHS [facility] Last Admin: 06/28/20 20:42 Dose: 10 mg Documented by: Baclofen (Baclofen 10 Mg Tablet) 10 mg PO TID PRN PRN PRN Reason: BACK SPASMS Calcium Carbonate (Calcium Carbonate 500 Mg Tablet) 500 mg PO BID [facility] Last Admin: 06/29/20 09:07 Dose: 500 mg Documented by: Clonazepam (Clonazepam 0.5 Mg Tablet) 0.5 mg PO BID [facility] Last Admin: 06/29/20 09:06 Dose: 0.5 mg Documented by: Dexamethasone (Dexamethasone 4 Mg Tablet) 6 mg PO DAILY [facility] Stop: 07/05/20 10:01 Last Admin: 06/29/20 09:07 Dose: 6 mg Documented by: Enoxaparin Sodium (Enoxaparin 40 Mg/0.4 Ml Syringe) 40 mg SC DAILY [facility] Last Admin: 06/29/20 09:07 Dose: 40 mg Documented by: Remdesivir 100 mg/ Sodium (Chloride) 250 mls @ 125 mls/hr IV DAILY [facility] Stop: 06/30/20 11:59 Last Infusion: 06/29/20 11:13 Dose: Infused Documented by: Sodium Chloride () 250 mls @ 15 mls/hr IV .[id number] PRN PRN Reason: Saline Flush Last Infusion: 06/29/20 12:25 Dose: 0 mls/hr Documented by: Sodium Chloride () 250 mls @ 15 mls/hr IV .[id number] PRN PRN Reason: Additional IVPB Infusion Ibuprofen (Ibuprofen 400 Mg Tablet) 400 mg PO Q4H PRN PRN PRN Reason: Pain Score 1-10/Temp > 100.7 F Loratadine (Loratadine 10 Mg Tablet) 10 mg PO DAILY [facility] Last Admin: 06/29/20 09:07 Dose: 10 mg Documented by: Losartan Potassium (Losartan Potassium 50 Mg Tablet) 50 mg PO BID [facility] Last Admin: 06/29/20 09:07 Dose: 50 mg Documented by: Metoprolol Succinate (Metoprolol(Xl)Succ 25 Mg Tablet) 25 mg PO BID [facility] Last Admin: 06/29/20 09:06 Dose: 25 mg Documented by: Ondansetron HCl (Ondansetron 4 Mg/2 Ml Vial) 4 mg IV Q8H PRN PRN PRN Reason: NAUSEA/VOMITING Sodium Chloride (0.9% Saline Lock 10 Ml Syringe) 10 - 40 ml IV UD PRN PRN Reason: SALINE FLUSH Last Admin: 06/29/20 09:13 Dose: 10 ml Documented by: Medical Necessity - Tobacco Use Smoking Status: Never smoker Assessment/Plan All Active Problems (Last Reviewed 06/26/20 @ 13:[address] Jean Claude Ibanez, DO) COVID-19 (Acute) Hypoxia (Acute) #1 bilateral Covid pneumonia-continue present treatment-no changes at this time #2 hypoxia secondary to #1-continue to monitor pulse ox #3 essential hypertension #4 hyperlipidemia Inpatient E&M: 10706 Subs Hosp L2
[2020-06-29] MEDS: Aspirin 81 MG TAB.CHEW PO (16:29)
[2020-06-29] MEDS: Sodium Chloride 0.65% 1 SPRAY SPRAY.BTL 2 SPRAY NASAL (16:29)
[2020-06-29] MEDS: Atorvastatin Calcium 10 MG Tablet PO (20:47)
[2020-06-30] VITALS (16 sets, daily range): BP systolic 145–184; BP diastolic 52–70; PULSE 59–80; RESP 16–19; TEMP 36.3–36.6; O2SAT 91–96
[2020-06-30] MEDS: hydrALAZINE 20 MG/ML Vial 10 MG IV ×2 (03:53→22:22)
--- NOTE | 2020-06-30 09:49 | CASEMGMT ---
Addendum entered by Kasi Freire 06/30/20 10:22: Order for HHC SN, PT/OT placed and faxed to [facility] with clinical. Contreras CAMEJO Original Note: RN LAUREN Note: Intro role of CM to via phone. RN LAUREN had spoken with previously. is very TELIDA and would like to make decisions re: dc planning. He had COVID-19, is doing much better at home and states he will be able to assist her on dc. -Discussed oxygen DME including verbal review of list of providers including hospital affiliation with [facility] for patient's area. prefers [facility]. -Discussed PT/OT notes and Home Health Care. is agreeable to [facility] if needed. -Call from Clint @ [facility] . States is being seen by their agency and would like to use same if needed. -PH: - FX: [phone] Contreras CAMEJO
[2020-06-30] MEDS: Losartan Potassium 50 MG Tablet PO ×2 (09:55→20:31)
[2020-06-30] MEDS: Loratadine 10 MG Tablet PO (09:55)
[2020-06-30] MEDS: dexAMETHasone 4 MG Tablet 6 MG PO (09:56)
[2020-06-30] MEDS: clonazePAM 0.5 MG Tablet PO ×2 (09:56→20:31)
[2020-06-30] MEDS: Enoxaparin 40 MG/0.4 ML Syringe SC (09:56)
[2020-06-30] MEDS: Metoprolol(XL)Succ 25 MG Tablet PO ×2 (09:57→20:31)
[2020-06-30] MEDS: Calcium Carbonate 500 MG Tablet PO ×2 (09:57→20:31)
[2020-06-30] MEDS: amLODIPine 5 MG Tablet PO (09:57)
[2020-06-30] MEDS: 0.9% Saline Lock 10 ML Syringe IV (11:25)
--- NOTE | 2020-06-30 11:30 | CASEMGMT ---
RN LAUREN Note: Intro role of CM to via phone. RN LAUREN had spoken with previously. is very [place]KAY OWINGEH and would like to make decisions re: dc planning. He had COVID-19, is doing much better at home and states he will be able to assist her on dc. -Discussed oxygen DME including verbal review of list of providers including hospital affiliation with [facility] for patient's area. prefers [facility]. -Discussed PT/OT notes and Home Health Care. is not agreeable to [facility], states he and family will be able to care for her. Contreras ROYALN RN ACM
--- NOTE | 2020-06-30 11:35 | PN_ITS ---
Patient Problems: Active and Suspected Problems (Last Reviewed 06/26/20 @ 13:[address] Jean Claude Ibanez, DO) COVID-19 (Acute) Hypoxia (Acute) Subjective: Patient was seen and examined today, she remains on 4 L of oxygen via nasal cannula. Patient does not seem to be in any distress she does complain of some nasal mucosal dryness. - Physical Exam Vitals/I&O's: Vital Signs Temp Pulse Resp BP Pulse Ox 97.4 F L 70 17 161/61 H 91 06/30/20 09:44 06/30/20 09:57 06/30/20 09:44 06/30/20 09:44 06/30/20 09:44 Oxygen Flow Rate (L/min) 4 Oxygen Delivery Method Nasal Cannula Weight: 85.548 kg Body Mass Index (BMI) 29.5 Intake and Output for Last 24 Hours 06/28/20 06/29/20 06/30/20 23:59 23:59 23:59 Intake Total 6.25 / 2316.25 1508 / 1908 900 / 900 Balance 1915. / 2315.25 1508 / 1908 900 / 900 General: Alert, Oriented x3, Cooperative, No apparent distress, Well developed HEENT: Atraumatic, PERRLA, EOMI, Normocephalic Oral: Moist Mucosa Neck: Supple, No JVD, Trachea Midline, Thyroid Normal Size and Texture Lungs: Clear to auscultation, No rhonchi, No wheeze, No rales, Diminished Cardiovascular: Regular rate, Regular Rhythm, Normal S1, Normal S2, No murmurs, PMI Normal, No rub noted, No Gallop Abdomen: Bowel Sounds Present, Soft, Non Tender, Non-Distended Extremities: No clubbing, No cyanosis, No edema, Capillary Refill Less than 3 Seconds Skin: No rashes, No breakdown Musculoskeletal: No Tenderness to Palpation of Joints or Extremities Neurological: Cranial nerves II-XII grossly intact, Neuro grossly intact, Sensory exam intact to light touch and pain, Coordination normal Psych/Mental Status: Normal Affect, Appropriate, Alert and oriented to time, place, person, mood and affect Microbiology Past 72 Hours 06/26/20 10:55 Blood Culture (Wb) - Right Wrist Blood Culture - Preliminary No growth in 48 hours. 06/26/20 10:30 Blood Culture (Wb) - Anticubital Left Blood Culture - Preliminary No growth in 48 hours. Current Medications Acetaminophen (Acetaminophen 325 Mg Tablet) 650 mg PO Q6H PRN PRN PRN Reason: Pain Score 1-10/Temp > 100.7 F Amlodipine Besylate (Amlodipine 5 Mg Tablet) 5 mg PO DAILY [facility] Last Admin: 06/30/20 09:57 Dose: 5 mg Documented by: Aspirin (Aspirin 81 Mg Tab.Chew) 81 mg PO DINNER [facility] Last Admin: 06/29/20 16:29 Dose: 81 mg Documented by: Atorvastatin Calcium (Atorvastatin Calcium 10 Mg Tablet) 10 mg PO QHS [facility] Last Admin: 06/29/20 20:47 Dose: 10 mg Documented by: Baclofen (Baclofen 10 Mg Tablet) 10 mg PO TID PRN PRN PRN Reason: BACK SPASMS Calcium Carbonate (Calcium Carbonate 500 Mg Tablet) 500 mg PO BID [facility] Last Admin: 06/30/20 09:57 Dose: 500 mg Documented by: Clonazepam (Clonazepam 0.5 Mg Tablet) 0.5 mg PO BID [facility] Last Admin: 06/30/20 09:56 Dose: 0.5 mg Documented by: Dexamethasone (Dexamethasone 4 Mg Tablet) 6 mg PO DAILY [facility] Stop: 07/05/20 10:01 Last Admin: 06/30/20 09:56 Dose: 6 mg Documented by: Enoxaparin Sodium (Enoxaparin 40 Mg/0.4 Ml Syringe) 40 mg SC DAILY [facility] Last Admin: 06/30/20 09:56 Dose: 40 mg Documented by: Hydralazine HCl (Hydralazine 20 Mg/Ml Vial) 10 mg IV Q6H PRN PRN PRN Reason: give for BP>160/110 Last Admin: 06/30/20 03:53 Dose: 10 mg Documented by: Remdesivir 100 mg/ Sodium (Chloride) 250 mls @ 125 mls/hr IV DAILY [facility] Stop: 06/30/20 11:59 Last Admin: 06/30/20 11:24 Dose: 125 mls/hr Documented by: Sodium Chloride () 250 mls @ 15 mls/hr IV .[id number] PRN PRN Reason: Saline Flush Last Infusion: 06/29/20 12:25 Dose: 0 mls/hr Documented by: Sodium Chloride () 250 mls @ 15 mls/hr IV .[id number] PRN PRN Reason: Additional IVPB Infusion Ibuprofen (Ibuprofen 400 Mg Tablet) 400 mg PO Q4H PRN PRN PRN Reason: Pain Score 1-10/Temp > 100.7 F Loratadine (Loratadine 10 Mg Tablet) 10 mg PO DAILY [facility] Last Admin: 06/30/20 09:55 Dose: 10 mg Documented by: Losartan Potassium (Losartan Potassium 50 Mg Tablet) 50 mg PO BID [facility] Last Admin: 06/30/20 09:55 Dose: 50 mg Documented by: Metoprolol Succinate (Metoprolol(Xl)Succ 25 Mg Tablet) 25 mg PO BID [facility] Last Admin: 06/30/20 09:57 Dose: 25 mg Documented by: Ondansetron HCl (Ondansetron 4 Mg/2 Ml Vial) 4 mg IV Q8H PRN PRN PRN Reason: NAUSEA/VOMITING Sodium Chloride (0.9% Saline Lock 10 Ml Syringe) 10 - 40 ml IV UD PRN PRN Reason: SALINE FLUSH Last Admin: 06/30/20 11:25 Dose: 10 ml Documented by: Sodium Chloride (Sodium Chloride 0.65% 1 [place].Btl) 2 spray NASAL BID PRN PRN PRN Reason: NASAL DRYNESS Last Admin: 06/29/20 16:29 Dose: 2 spray Documented by: Medical Necessity - Tobacco Use Smoking Status: Never smoker Assessment/Plan All Active Problems (Last Reviewed 06/26/20 @ 13:[address] Jean Claude Ibanez, DO) COVID-19 (Acute) Hypoxia (Acute) #1 bilateral Covid pneumonia-continue present treatment-no changes at this time, patient finishes up her remdesivir today #2 hypoxia secondary to #1-continue to monitor pulse ox, wean oxygen if possible #3 essential hypertension #4 hyperlipidemia Inpatient E&M: 91334 Subs Hosp L2
--- NOTE | 2020-06-30 12:57 | NURSING ---
Verbal consent obtained. Called and updated daughter, Anjelica on patient's condition.
[2020-06-30] MEDS: Aspirin 81 MG TAB.CHEW PO (16:30)
[2020-06-30] MEDS: Atorvastatin Calcium 10 MG Tablet PO (20:31)
[2020-07-01] VITALS (12 sets, daily range): BP systolic 123–167; BP diastolic 46–72; PULSE 54–72; RESP 18–20; TEMP 36.4–36.7; O2SAT 87–95
--- NOTE | 2020-07-01 07:31 | PCS.PANDOC ---
PANDEMIC DOCUMENTATION INITIATED: Date: 04/26/2020 Time:
[2020-07-01] MEDS: Losartan Potassium 50 MG Tablet PO ×2 (08:35→21:06)
[2020-07-01] MEDS: dexAMETHasone 4 MG Tablet 6 MG PO (08:35)
[2020-07-01] MEDS: Metoprolol(XL)Succ 25 MG Tablet PO ×2 (08:36→21:05)
[2020-07-01] MEDS: Enoxaparin 40 MG/0.4 ML Syringe SC (08:36)
[2020-07-01] MEDS: clonazePAM 0.5 MG Tablet PO ×2 (08:36→21:05)
[2020-07-01] MEDS: amLODIPine 5 MG Tablet PO (08:36)
[2020-07-01] MEDS: Calcium Carbonate 500 MG Tablet PO ×2 (08:37→21:05)
--- NOTE | 2020-07-01 15:18 | PN_ITS ---
Patient Problems: Active and Suspected Problems (Last Reviewed 06/26/20 @ 13:[address] Jean Claude Ibanez, DO) COVID-19 (Acute) Hypoxia (Acute) Subjective: Patient was seen and examined today, she has been sitting up in the chair quite a bit, she does not complain of any chills or fever. We are attempting to wean the patient's oxygen down, currently she is on 2 L. Objective: General: Alert, Oriented x3, Cooperative, No apparent distress, Well developed HEENT: Atraumatic, PERRLA, EOMI, Normocephalic Oral: Moist Mucosa Neck: Supple, No JVD, Trachea Midline, Thyroid Normal Size and Texture Lungs: Clear to auscultation, No rhonchi, No wheeze, No rales, Diminished Cardiovascular: Regular rate, Regular Rhythm, Normal S1, Normal S2, No murmurs, PMI Normal, No rub noted, No Gallop Abdomen: Bowel Sounds Present, Soft, Non Tender, Non-Distended Extremities: No clubbing, No cyanosis, No edema, Capillary Refill Less than 3 Seconds Skin: No rashes, No breakdown Musculoskeletal: No Tenderness to Palpation of Joints or Extremities Neurological: Cranial nerves II-XII grossly intact, Neuro grossly intact, Sensory exam intact to light touch and pain, Coordination normal Psych/Mental Status: Normal Affect, Appropriate, Alert and oriented to time, place, person, mood and affect - Physical Exam Vitals/I&O's: Vital Signs Temp Pulse Resp BP Pulse Ox 97.9 F 54 L 18 130/48 H 91 07/01/20 10:30 07/01/20 10:30 07/01/20 10:30 07/01/20 10:30 07/01/20 11:37 Oxygen Flow Rate (L/min) 2 Oxygen Delivery Method Nasal Cannula Weight: 85.548 kg Body Mass Index (BMI) 29.5 Intake and Output for Last 24 Hours 06/29/20 06/30/20 07/01/20 23:59 23:59 23:59 Intake Total 1508 / 1908 2440 / 2920 480.5 / 480.5 Output Total 500 / 500 Balance 1508 / 1908 2440 / 2920 -19.5 / -19.5 Microbiology Past 72 Hours 06/26/20 10:30 Blood Culture (Wb) - Anticubital Left Blood Culture - Final No growth in 5 days. 06/26/20 10:55 Blood Culture (Wb) - Right Wrist Blood Culture - Final No growth in 5 days. Current Medications Acetaminophen (Acetaminophen 325 Mg Tablet) 650 mg PO Q6H PRN PRN PRN Reason: Pain Score 1-10/Temp > 100.7 F Amlodipine Besylate (Amlodipine 5 Mg Tablet) 5 mg PO DAILY [facility] Last Admin: 07/01/20 08:36 Dose: 5 mg Documented by: Aspirin (Aspirin 81 Mg Tab.Chew) 81 mg PO DINNER [facility] Last Admin: 06/30/20 16:30 Dose: 81 mg Documented by: Atorvastatin Calcium (Atorvastatin Calcium 10 Mg Tablet) 10 mg PO QHS [facility] Last Admin: 06/30/20 20:31 Dose: 10 mg Documented by: Baclofen (Baclofen 10 Mg Tablet) 10 mg PO TID PRN PRN PRN Reason: BACK SPASMS Calcium Carbonate (Calcium Carbonate 500 Mg Tablet) 500 mg PO BID [facility] Last Admin: 07/01/20 08:37 Dose: 500 mg Documented by: Clonazepam (Clonazepam 0.5 Mg Tablet) 0.5 mg PO BID [facility] Last Admin: 07/01/20 08:36 Dose: 0.5 mg Documented by: Dexamethasone (Dexamethasone 4 Mg Tablet) 6 mg PO DAILY [facility] Stop: 07/05/20 10:01 Last Admin: 07/01/20 08:35 Dose: 6 mg Documented by: Enoxaparin Sodium (Enoxaparin 40 Mg/0.4 Ml Syringe) 40 mg SC DAILY [facility] Last Admin: 07/01/20 08:36 Dose: 40 mg Documented by: Hydralazine HCl (Hydralazine 20 Mg/Ml Vial) 10 mg IV Q6H PRN PRN PRN Reason: BLOOD PRESSURE ELEVATION Last Admin: 06/30/20 22:22 Dose: 10 mg Documented by: Sodium Chloride () 250 mls @ 15 mls/hr IV .[id number] PRN PRN Reason: Saline Flush Last Infusion: 07/01/20 08:45 Dose: Infused Documented by: Sodium Chloride () 250 mls @ 15 mls/hr IV .[id number] PRN PRN Reason: Additional IVPB Infusion Ibuprofen (Ibuprofen 400 Mg Tablet) 400 mg PO Q4H PRN PRN PRN Reason: Pain Score 1-10/Temp > 100.7 F Losartan Potassium (Losartan Potassium 50 Mg Tablet) 50 mg PO BID [facility] Last Admin: 07/01/20 08:35 Dose: 50 mg Documented by: Metoprolol Succinate (Metoprolol(Xl)Succ 25 Mg Tablet) 25 mg PO BID [facility] Last Admin: 07/01/20 08:36 Dose: 25 mg Documented by: Ondansetron HCl (Ondansetron 4 Mg/2 Ml Vial) 4 mg IV Q8H PRN PRN PRN Reason: NAUSEA/VOMITING Sodium Chloride (0.9% Saline Lock 10 Ml Syringe) 10 - 40 ml IV UD PRN PRN Reason: SALINE FLUSH Last Admin: 06/30/20 11:25 Dose: 10 ml Documented by: Sodium Chloride (Sodium Chloride 0.65% 1 [place].Btl) 2 spray NASAL BID PRN PRN PRN Reason: NASAL DRYNESS Last Admin: 06/29/20 16:29 Dose: 2 spray Documented by: Medical Necessity - Tobacco Use Smoking Status: Never smoker Assessment/Plan All Active Problems (Last Reviewed 06/26/20 @ 13:[address] Jean Claude Ibanez, DO) COVID-19 (Acute) Hypoxia (Acute) #1 bilateral Covid pneumonia-continue present treatment-no changes at this time, patient remains on dexamethasone #2 hypoxia secondary to #1-continue to monitor pulse ox, wean oxygen if possible #3 essential hypertension #4 hyperlipidemia Inpatient E&M: 34265 Subs Hosp L2
--- NOTE | 2020-07-01 15:43 | NURSING ---
[id number] received fax transmission from [facility] showing + COVID19 (SARS CoV2) by PCR per Elías Yadav Pa-C. placed in chart
[2020-07-01] MEDS: Aspirin 81 MG TAB.CHEW PO (17:06)
[2020-07-01] MEDS: Atorvastatin Calcium 10 MG Tablet PO (21:06)
[2020-07-02] VITALS (8 sets, daily range): BP systolic 130–150; BP diastolic 60–70; PULSE 60–66; RESP 18–20; TEMP 36.5–36.8; O2SAT 3–97
--- NOTE | 2020-07-02 08:17 | NURSING ---
Room air at rest Spo2 87% Room air ambulating spo2 84% Ambulating SPO2: 86% on 3L NC 91% on 4L NC 92% on 5L NC Resting SPO2: 92% on 3L NC
--- NOTE | 2020-07-02 10:20 | NURSING ---
spo2 91% on 3L ambulating to bathroom and back to chair
[2020-07-02] MEDS: dexAMETHasone 4 MG Tablet 6 MG PO (11:12)
[2020-07-02] MEDS: Metoprolol(XL)Succ 25 MG Tablet PO ×2 (11:12→19:59)
[2020-07-02] MEDS: amLODIPine 5 MG Tablet PO (11:12)
[2020-07-02] MEDS: Calcium Carbonate 500 MG Tablet PO ×2 (11:12→19:59)
[2020-07-02] MEDS: clonazePAM 0.5 MG Tablet PO ×2 (11:12→19:59)
[2020-07-02] MEDS: Losartan Potassium 50 MG Tablet PO ×2 (11:12→19:59)
[2020-07-02] MEDS: Enoxaparin 40 MG/0.4 ML Syringe SC (11:13)
--- NOTE | 2020-07-02 15:11 | CASEMGMT ---
RN LAUREN Note: Call received from Daughter, perla with concerns re: home health and her father requesting not to have HHC. Reviewed PT/OT notes and nurses handoff re: patient ambulation and activity. Discussed that although HHC is beneficial, they are not at the home / and patient may still need assistance with some activities and safety with bathing. Daughter will speak with her father and family and will contact CM either tomorrow or Sunday if they would like HHC and cm will assist with arrangements. [facility]: [facility], [facility], [facility]. Contreras ROYALN RN ACM
--- NOTE | 2020-07-02 16:12 | PN_ITS ---
Patient Problems: Active and Suspected Problems (Last Reviewed 06/26/20 @ 13:[address] Jean Claude Ibanez, DO) COVID-19 (Acute) Hypoxia (Acute) Reason for Visit: Patient was seen and examined today, she appears stable on 2 L nasal cannula oxygen at this time, she does complain of back pain which is chronic for her. Objective: General: Alert, Oriented x3, Cooperative, No apparent distress, Well developed HEENT: Atraumatic, PERRLA, EOMI, Normocephalic Oral: Moist Mucosa Neck: Supple, No JVD, Trachea Midline, Thyroid Normal Size and Texture Lungs: Clear to auscultation, No rhonchi, No wheeze, No rales, Diminished Cardiovascular: Regular rate, Regular Rhythm, Normal S1, Normal S2, No murmurs, PMI Normal, No rub noted, No Gallop Abdomen: Bowel Sounds Present, Soft, Non Tender, Non-Distended Extremities: No clubbing, No cyanosis, No edema, Capillary Refill Less than 3 Seconds Skin: No rashes, No breakdown Musculoskeletal: No Tenderness to Palpation of Joints or Extremities Neurological: Cranial nerves II-XII grossly intact, Neuro grossly intact, Senso ry exam intact to light touch and pain, Coordination normal Psych/Mental Status: Normal Affect, Appropriate, Alert and oriented to time, place, person, mood and affect Vitals/I&O's: Vital Signs Temp Pulse Resp BP Pulse Ox 98.1 F 66 18 150/65 H 94 07/02/20 13:52 07/02/20 13:52 07/02/20 13:52 07/02/20 13:52 07/02/20 13:52 Oxygen Flow Rate (L/min) 3 Oxygen Delivery Method Nasal Cannula Weight: 85.548 kg Body Mass Index (BMI) 29.5 Intake and Output for Last 24 Hours 06/30/20 07/01/20 07/02/20 23:59 23:59 23:59 Intake Total 2440 / 2920 480.5 / 960.5 840 / 840 Output Total 900 / 900 Balance 2440 / 2920 -419.5 / 60.5 840 / 840 Microbiology Past 72 Hours 06/26/20 10:30 Blood Culture (Wb) - Anticubital Left Blood Culture - Final No growth in 5 days. 06/26/20 10:55 Blood Culture (Wb) - Right Wrist Blood Culture - Final No growth in 5 days. Current Medications Acetaminophen (Acetaminophen 325 Mg Tablet) 650 mg PO Q6H PRN PRN PRN Reason: Pain Score 1-10/Temp > 100.7 F Amlodipine Besylate (Amlodipine 5 Mg Tablet) 5 mg PO DAILY [facility] Last Admin: 07/02/20 11:12 Dose: 5 mg Documented by: Aspirin (Aspirin 81 Mg Tab.Chew) 81 mg PO DINNER [facility] Last Admin: 07/01/20 17:06 Dose: 81 mg Documented by: Atorvastatin Calcium (Atorvastatin Calcium 10 Mg Tablet) 10 mg PO QHS [facility] Last Admin: 07/01/20 21:06 Dose: 10 mg Documented by: Baclofen (Baclofen 10 Mg Tablet) 10 mg PO TID PRN PRN PRN Reason: BACK SPASMS Calcium Carbonate (Calcium Carbonate 500 Mg Tablet) 500 mg PO BID [facility] Last Admin: 07/02/20 11:12 Dose: 500 mg Documented by: Clonazepam (Clonazepam 0.5 Mg Tablet) 0.5 mg PO BID [facility] Last Admin: 07/02/20 11:12 Dose: 0.5 mg Documented by: Dexamethasone (Dexamethasone 4 Mg Tablet) 6 mg PO DAILY [facility] Stop: 07/05/20 10:01 Last Admin: 07/02/20 11:12 Dose: 6 mg Documented by: Enoxaparin Sodium (Enoxaparin 40 Mg/0.4 Ml Syringe) 40 mg SC DAILY [facility] Last Admin: 07/02/20 11:13 Dose: 40 mg Documented by: Hydralazine HCl (Hydralazine 20 Mg/Ml Vial) 10 mg IV Q6H PRN PRN PRN Reason: BLOOD PRESSURE ELEVATION Last Admin: 06/30/20 22:22 Dose: 10 mg Documented by: Sodium Chloride () 250 mls @ 15 mls/hr IV .[id number] PRN PRN Reason: Saline Flush Last Infusion: 07/01/20 08:45 Dose: Infused Documented by: Sodium Chloride () 250 mls @ 15 mls/hr IV .[id number] PRN PRN Reason: Additional IVPB Infusion Ibuprofen (Ibuprofen 400 Mg Tablet) 400 mg PO Q4H PRN PRN PRN Reason: Pain Score 1-10/Temp > 100.7 F Losartan Potassium (Losartan Potassium 50 Mg Tablet) 50 mg PO BID [facility] Last Admin: 07/02/20 11:12 Dose: 50 mg Documented by: Metoprolol Succinate (Metoprolol(Xl)Succ 25 Mg Tablet) 25 mg PO BID [facility] Last Admin: 07/02/20 11:12 Dose: 25 mg Documented by: Ondansetron HCl (Ondansetron 4 Mg/2 Ml Vial) 4 mg IV Q8H PRN PRN PRN Reason: NAUSEA/VOMITING Sodium Chloride (0.9% Saline Lock 10 Ml Syringe) 10 - 40 ml IV UD PRN PRN Reason: SALINE FLUSH Last Admin: 06/30/20 11:25 Dose: 10 ml Documented by: Sodium Chloride (Sodium Chloride 0.65% 1 [place].Btl) 2 spray NASAL BID PRN PRN PRN Reason: NASAL DRYNESS Last Admin: 06/29/20 16:29 Dose: 2 spray Documented by: STROKE Vital Signs/Narrative: Vital Signs Temp Pulse Resp BP Pulse Ox 07/02/20 13:52 98.1 F 66 18 150/65 H 94 Medical Necessity - Tobacco Use Smoking Status: Never smoker Assessment/Plan All Active Problems (Last Reviewed 06/26/20 @ 13:[address] Jean Claude Ibanez, DO) COVID-19 (Acute) Hypoxia (Acute) #1 bilateral Covid pneumonia-continue present treatment-no changes at this time, patient remains on dexamethasone #2 hypoxia secondary to #1-continue to monitor pulse ox, wean oxygen if possible, patient is currently on 3 L via nasal cannula #3 essential hypertension #4 hyperlipidemia Inpatient E&M: 19052 Subs Hosp L2
[2020-07-02] MEDS: Aspirin 81 MG TAB.CHEW PO (17:39)
[2020-07-02] MEDS: Atorvastatin Calcium 10 MG Tablet PO (19:59)
[2020-07-03] VITALS (8 sets, daily range): BP systolic 133–172; BP diastolic 53–72; PULSE 62–74; RESP 14–18; TEMP 36.4–36.6; O2SAT 93–97
[2020-07-03] MEDS: clonazePAM 0.5 MG Tablet PO ×2 (08:01→20:06)
[2020-07-03] MEDS: Enoxaparin 40 MG/0.4 ML Syringe SC (08:01)
[2020-07-03] MEDS: Calcium Carbonate 500 MG Tablet PO ×2 (08:01→20:07)
[2020-07-03] MEDS: dexAMETHasone 4 MG Tablet 6 MG PO (08:02)
[2020-07-03] MEDS: Losartan Potassium 50 MG Tablet PO ×2 (08:02→20:06)
[2020-07-03] MEDS: Metoprolol(XL)Succ 25 MG Tablet PO ×2 (08:02→20:07)
[2020-07-03] MEDS: amLODIPine 5 MG Tablet PO (08:02)
[2020-07-03] MEDS: Aspirin 81 MG TAB.CHEW PO (17:01)
--- NOTE | 2020-07-03 17:11 | PN_ITS ---
Patient Problems: Active and Suspected Problems (Last Reviewed 06/26/20 @ 13:[address] Jean Claude Ibanez, DO) COVID-19 (Acute) Hypoxia (Acute) Subjective: In and examined today, she remains on 2 L of oxygen via nasal cannula, she states she does not feel good today and she is tired. Objective: General: Alert, Oriented x3, Cooperative, No apparent distress, Well developed HEENT: Atraumatic, PERRLA, EOMI, Normocephalic Oral: Moist Mucosa Neck: Supple, No JVD, Trachea Midline, Thyroid Normal Size and Texture Lungs: Clear to auscultation, No rhonchi, No wheeze, No rales, Diminished Cardiovascular: Regular rate, Regular Rhythm, Normal S1, Normal S2, No murmurs, PMI Normal, No rub noted, No Gallop Abdomen: Bowel Sounds Present, Soft, Non Tender, Non-Distended Extremities: No clubbing, No cyanosis, No edema, Capillary Refill Less than 3 Seconds Skin: No rashes, No breakdown Musculoskeletal: No Tenderness to Palpation of Joints or Extremities Neurological: Cranial nerves II-XII grossly intact, Neuro grossly intact, Sensory exam intact to light touch and pain, Coordination normal Psych/Mental Status: Normal Affect, Appropriate, Alert and oriented to time, place, person, mood and affect - Physical Exam Vitals/I&O's: Vital Signs Temp Pulse Resp BP Pulse Ox 97.9 F 62 15 153/72 H 97 07/03/20 15:40 07/03/20 15:40 07/03/20 15:40 07/03/20 15:40 07/03/20 15:40 Oxygen Flow Rate (L/min) 2 Oxygen Delivery Method Nasal Cannula Weight: 85.548 kg Body Mass Index (BMI) 29.5 Intake and Output for Last 24 Hours 07/01/20 07/02/20 07/03/20 23:59 23:59 23:59 Intake Total 480.5 / 960.5 2139 / 0 Output Total 900 / 900 Balance -419.5 / 60.5 2139 / 2140 Microbiology Past 72 Hours 06/26/20 10:30 Blood Culture (Wb) - Anticubital Left Blood Culture - Final No growth in 5 days. 06/26/20 10:55 Blood Culture (Wb) - Right Wrist Blood Culture - Final No growth in 5 days. Current Medications Acetaminophen (Acetaminophen 325 Mg Tablet) 650 mg PO Q6H PRN PRN PRN Reason: Pain Score 1-10/Temp > 100.7 F Amlodipine Besylate (Amlodipine 5 Mg Tablet) 5 mg PO DAILY [facility] Last Admin: 07/03/20 08:02 Dose: 5 mg Documented by: Aspirin (Aspirin 81 Mg Tab.Chew) 81 mg PO DINNER [facility] Last Admin: 07/03/20 17:01 Dose: 81 mg Documented by: Atorvastatin Calcium (Atorvastatin Calcium 10 Mg Tablet) 10 mg PO QHS [facility] Last Admin: 07/02/20 19:59 Dose: 10 mg Documented by: Baclofen (Baclofen 10 Mg Tablet) 10 mg PO TID PRN PRN PRN Reason: BACK SPASMS Calcium Carbonate (Calcium Carbonate 500 Mg Tablet) 500 mg PO BID [facility] Last Admin: 07/03/20 08:01 Dose: 500 mg Documented by: Clonazepam (Clonazepam 0.5 Mg Tablet) 0.5 mg PO BID [facility] Last Admin: 07/03/20 08:01 Dose: 0.5 mg Documented by: Dexamethasone (Dexamethasone 4 Mg Tablet) 6 mg PO DAILY [facility] Stop: 07/05/20 10:01 Last Admin: 07/03/20 08:02 Dose: 6 mg Documented by: Enoxaparin Sodium (Enoxaparin 40 Mg/0.4 Ml Syringe) 40 mg SC DAILY [facility] Last Admin: 07/03/20 08:01 Dose: 40 mg Documented by: Hydralazine HCl (Hydralazine 20 Mg/Ml Vial) 10 mg IV Q6H PRN PRN PRN Reason: BLOOD PRESSURE ELEVATION Last Admin: 06/30/20 22:22 Dose: 10 mg Documented by: Sodium Chloride () 250 mls @ 15 mls/hr IV .[id number] PRN PRN Reason: Saline Flush Last Infusion: 07/01/20 08:45 Dose: Infused Documented by: Sodium Chloride () 250 mls @ 15 mls/hr IV .[id number] PRN PRN Reason: Additional IVPB Infusion Ibuprofen (Ibuprofen 400 Mg Tablet) 400 mg PO Q4H PRN PRN PRN Reason: Pain Score 1-10/Temp > 100.7 F Losartan Potassium (Losartan Potassium 50 Mg Tablet) 50 mg PO BID [facility] Last Admin: 07/03/20 08:02 Dose: 50 mg Documented by: Metoprolol Succinate (Metoprolol(Xl)Succ 25 Mg Tablet) 25 mg PO BID [facility] Last Admin: 07/03/20 08:02 Dose: 25 mg Documented by: Ondansetron HCl (Ondansetron 4 Mg/2 Ml Vial) 4 mg IV Q8H PRN PRN PRN Reason: NAUSEA/VOMITING Sodium Chloride (0.9% Saline Lock 10 Ml Syringe) 10 - 40 ml IV UD PRN PRN Reason: SALINE FLUSH Last Admin: 06/30/20 11:25 Dose: 10 ml Documented by: Sodium Chloride (Sodium Chloride 0.65% 1 [place].Btl) 2 spray NASAL BID PRN PRN PRN Reason: NASAL DRYNESS Last Admin: 06/29/20 16:29 Dose: 2 spray Documented by: Medical Necessity - Tobacco Use Smoking Status: Never smoker Assessment/Plan All Active Problems (Last Reviewed 06/26/20 @ 13:[address] Jean Claude Ibanez, DO) COVID-19 (Acute) Hypoxia (Acute) #1 bilateral Covid pneumonia-continue present treatment-no changes at this time, patient remains on dexamethasone, I feel the patient needs to remain in the hospital at this time #2 hypoxia secondary to #1-continue to monitor pulse ox, wean oxygen if possible, patient is currently on 2 L via nasal cannula #3 essential hypertension #4 hyperlipidemia Inpatient E&M: 33860 [facility] Hosp L2
[2020-07-03] MEDS: Atorvastatin Calcium 10 MG Tablet PO (20:07)
[2020-07-03] MEDS: 0.9% Saline Lock 10 ML Syringe IV (20:12)
[2020-07-03] MEDS: Sodium Chloride 0.65% 1 SPRAY SPRAY.BTL 2 SPRAY NASAL (20:14)
[2020-07-04] VITALS (9 sets, daily range): BP systolic 136–157; BP diastolic 54–65; PULSE 56–72; RESP 14–18; TEMP 36.1–36.8; O2SAT 93–96
[2020-07-04] MEDS: Metoprolol(XL)Succ 25 MG Tablet PO ×2 (08:56→20:37)
[2020-07-04] MEDS: dexAMETHasone 4 MG Tablet 6 MG PO (08:57)
[2020-07-04] MEDS: amLODIPine 5 MG Tablet PO (08:57)
[2020-07-04] MEDS: Enoxaparin 40 MG/0.4 ML Syringe SC (08:57)
[2020-07-04] MEDS: Calcium Carbonate 500 MG Tablet PO ×2 (08:57→20:37)
[2020-07-04] MEDS: Losartan Potassium 50 MG Tablet PO ×2 (08:57→20:37)
[2020-07-04] MEDS: clonazePAM 0.5 MG Tablet PO ×2 (09:04→20:36)
--- NOTE | 2020-07-04 16:12 | PN_ITS ---
Patient Problems: Active and Suspected Problems (Last Reviewed 06/26/20 @ 13:[address] Jean Claude Ibanez, DO) COVID-19 (Acute) Hypoxia (Acute) Subjective: Patient was seen and examined today, she remains on 2 L of oxygen and states that she still does not feel well. I do not know how much assistance the patient will need at home, I am planning on talking with case management and social services specialist tomorrow, at that time I feel the patient probably will be stable enough to go home either on oxygen or without it if she does not require it. I will attempt to reach out to the family today to see what kind of support she has at home. Objective: General: Alert, Oriented x3, Cooperative, No apparent distress, Well developed HEENT: Atraumatic, PERRLA, EOMI, Normocephalic Oral: Moist Mucosa Neck: Supple, No JVD, Trachea Midline, Thyroid Normal Size and Texture Lungs: Clear to auscultation, No rhonchi, No wheeze, No rales, Diminished Cardiovascular: Regular rate, Regular Rhythm, Normal S1, Normal S2, No murmurs, PMI Normal, No rub noted, No Gallop Abdomen: Bowel Sounds Present, Soft, Non Tender, Non-Distended Extremities: No clubbing, No cyanosis, No edema, Capillary Refill Less than 3 Seconds Skin: No rashes, No breakdown Musculoskeletal: No Tenderness to Palpation of Joints or Extremities Neurological: Cranial nerves II-XII grossly intact, Neuro grossly intact, Sensory exam intact to light touch and pain, Coordination normal Psych/Mental Status: Normal Affect, Appropriate, Alert and oriented to time, place, person, mood and affect - Physical Exam Vitals/I&O's: Vital Signs Temp Pulse Resp BP Pulse Ox 97.1 F L 56 L 14 141/59 H 94 07/04/20 15:39 07/04/20 15:39 07/04/20 15:39 07/04/20 15:39 07/04/20 15:39 Oxygen Flow Rate (L/min) 2 Oxygen Delivery Method Nasal Cannula Weight: 85.548 kg Body Mass Index (BMI) 29.5 Intake and Output for Last 24 Hours 07/02/20 07/03/20 07/04/20 23:59 23:59 23:59 Intake Total 2140 / 2140 540 / 540 120 / 120 Balance 2140 / 2140 540 / 540 120 / 120 Microbiology Past 72 Hours 06/26/20 10:30 Blood Culture (Wb) - Anticubital Left Blood Culture - Final No growth in 5 days. 06/26/20 10:55 Blood Culture (Wb) - Right Wrist Blood Culture - Final No growth in 5 days. Current Medications Acetaminophen (Acetaminophen 325 Mg Tablet) 650 mg PO Q6H PRN PRN PRN Reason: Pain Score 1-10/Temp > 100.7 F Amlodipine Besylate (Amlodipine 5 Mg Tablet) 5 mg PO DAILY [facility] Last Admin: 07/04/20 08:57 Dose: 5 mg Documented by: Aspirin (Aspirin 81 Mg Tab.Chew) 81 mg PO DINNER [facility] Last Admin: 07/03/20 17:01 Dose: 81 mg Documented by: Atorvastatin Calcium (Atorvastatin Calcium 10 Mg Tablet) 10 mg PO QHS [facility] Last Admin: 07/03/20 20:07 Dose: 10 mg Documented by: Baclofen (Baclofen 10 Mg Tablet) 10 mg PO TID PRN PRN PRN Reason: BACK SPASMS Calcium Carbonate (Calcium Carbonate 500 Mg Tablet) 500 mg PO BID [facility] Last Admin: 07/04/20 08:57 Dose: 500 mg Documented by: Clonazepam (Clonazepam 0.5 Mg Tablet) 0.5 mg PO BID [facility] Last Admin: 07/04/20 09:04 Dose: 0.5 mg Documented by: Dexamethasone (Dexamethasone 4 Mg Tablet) 6 mg PO DAILY [facility] Stop: 07/05/20 10:01 Last Admin: 07/04/20 08:57 Dose: 6 mg Documented by: Enoxaparin Sodium (Enoxaparin 40 Mg/0.4 Ml Syringe) 40 mg SC DAILY [facility] Last Admin: 07/04/20 08:57 Dose: 40 mg Documented by: Hydralazine HCl (Hydralazine 20 Mg/Ml Vial) 10 mg IV Q6H PRN PRN PRN Reason: BLOOD PRESSURE ELEVATION Last Admin: 06/30/20 22:22 Dose: 10 mg Documented by: Sodium Chloride () 250 mls @ 15 mls/hr IV .[id number] PRN PRN Reason: Saline Flush Last Infusion: 07/01/20 08:45 Dose: Infused Documented by: Sodium Chloride () 250 mls @ 15 mls/hr IV .[id number] PRN PRN Reason: Additional IVPB Infusion Ibuprofen (Ibuprofen 400 Mg Tablet) 400 mg PO Q4H PRN PRN PRN Reason: Pain Score 1-10/Temp > 100.7 F Losartan Potassium (Losartan Potassium 50 Mg Tablet) 50 mg PO BID [facility] Last Admin: 07/04/20 08:57 Dose: 50 mg Documented by: Metoprolol Succinate (Metoprolol(Xl)Succ 25 Mg Tablet) 25 mg PO BID [facility] Last Admin: 07/04/20 08:56 Dose: 25 mg Documented by: Ondansetron HCl (Ondansetron 4 Mg/2 Ml Vial) 4 mg IV Q8H PRN PRN PRN Reason: NAUSEA/VOMITING Sodium Chloride (0.9% Saline Lock 10 Ml Syringe) 10 - 40 ml IV UD PRN PRN Reason: SALINE FLUSH Last Admin: 07/03/20 20:12 Dose: 10 ml Documented by: Sodium Chloride (Sodium Chloride 0.65% 1 [place].Btl) 2 spray NASAL BID PRN PRN PRN Reason: NASAL DRYNESS Last Admin: 07/03/20 20:14 Dose: 2 spray Documented by: Medical Necessity - Tobacco Use Smoking Status: Never smoker Assessment/Plan All Active Problems (Last Reviewed 06/26/20 @ 13:[address] Jean Claude Ibanez, DO) COVID-19 (Acute) Hypoxia (Acute) #1 bilateral Covid pneumonia-continue present treatment-no changes at this time, patient remains on dexamethasone, I feel the patient needs to remain in the hospital at this time #2 hypoxia secondary to #1-continue to monitor pulse ox, wean oxygen if possible, patient is currently on 2 L via nasal cannula #3 essential hypertension #4 hyperlipidemia We will talk with discharge planning tomorrow about possible discharge and she may need oxygen set up at home. Inpatient E&M: [id number] Subs Hosp L2
[2020-07-04] MEDS: Aspirin 81 MG TAB.CHEW PO (17:04)
[2020-07-04] MEDS: Atorvastatin Calcium 10 MG Tablet PO (20:37)
[2020-07-04] MEDS: 0.9% Saline Lock 10 ML Syringe IV (20:39)
[2020-07-05 02:00] VITALS: BP 144/60; PULSE 59; RESP 16; TEMP 36.6; O2SAT 93
--- NOTE | 2020-07-05 08:02 | DCINST_ITS ---
- Discharge Diagnoses Current Active Problems: Current Active and Chronic Problems (Last Reviewed 06/26/20 @ 13:[address] Jean Claude Ibanez, DO) COVID-19 (Acute) Hypoxia (Acute) Essential (primary) hypertension (Chronic) Hyperlipidemia (Chronic) You will use the following diet at home:: No restrictions Your food should be the consistency of: Regular Your liquids should be the consistency of: Regular/Thin Discharge Activity: Return to Normal Activity Weight Bearing Status: Full weight bearing Allergies/Adverse Reactions: Allergies Iodinated Contrast Media [Iodinated Contrast Media - IV Dye] Allergy (Verified 03/23/20 10:54) Vomiting Sulfa (Sulfonamide Antibiotics) Allergy (Verified 03/23/20 10:54) Rash alendronate sodium [From Fosamax] Adverse Reaction (Verified 03/23/20 10:54) unknown aliskiren [From Tekturna] Adverse Reaction (Verified 03/23/20 10:54) Unknown amoxicillin [From Trimox] Adverse Reaction (Verified 03/23/20 10:54) Unknown atenolol Adverse Reaction (Verified 03/23/20 10:54) Unknown escitalopram [From Lexapro] Adverse Reaction (Verified 03/23/20 10:54) Unknown hydrochlorothiazide Adverse Reaction (Verified 03/23/20 10:54) Unknown ibuprofen Adverse Reaction (Verified 03/23/20 10:54) Unknown lansoprazole [From Prevacid] Adverse Reaction (Verified 03/23/20 10:54) Unknown lisinopril Adverse Reaction (Verified 03/23/20 10:54) Unknown nickel Adverse Reaction (Verified 03/23/20 10:54) Unknown prednisone Adverse Reaction (Verified 03/23/20 10:54) Other i got really red risedronate sodium [From Actonel] Adverse Reaction (Verified 03/23/20 10:54) Unknown sertraline [From Zoloft] Adverse Reaction (Verified 03/23/20 10:54) Unknown Medications to take at Discharge Aspirin [Aspirin, Baby] 81 mg PO DINNER 05/26/14 Cetirizine HCl [Zyrtec] 10 mg PO DAILY 05/26/14 Clonazepam [Klonopin] 0.5 mg PO BID 05/26/14 baclofen 10 mg tablet 10 mg PO TID PRN tab 08/23/18 amlodipine 5 mg tablet 5 mg PO DAILY #90 tab 08/28/19 losartan 50 mg tablet 50 mg PO BID #180 tab 08/28/19 metoprolol succinate 25 mg tablet,extended release 24 hr 25 mg PO BID #180 tab 08/28/19 simvastatin 20 mg tablet 20 mg PO QHS #90 tab 08/28/19 calcium carbonate 200 mg calcium (500 mg) chewable tablet 200 mg PO BID 03/23/20 cholecalciferol (vitamin D3) 1,250 mcg (50,000 unit) capsule 50,000 unit PO .QOWeek cap 03/23/20 Primary Care Physician: Valerie Garcia, PA [Primary Care Provider] - Please follow up with your Primary Care Physician in: in 2 weeks Test Results: Test results from this visit will be discussed in further detail at your follow- up appointment, if applicable.
[2020-07-05 08:13] VITALS: BP 142/52; PULSE 64; RESP 18; TEMP 36.6; O2SAT 94
[2020-07-05] MEDS: Enoxaparin 40 MG/0.4 ML Syringe SC (08:17)
[2020-07-05] MEDS: dexAMETHasone 4 MG Tablet 6 MG PO (08:17)
[2020-07-05 08:18] VITALS: PULSE 64
[2020-07-05] MEDS: Metoprolol(XL)Succ 25 MG Tablet PO (08:18)
[2020-07-05] MEDS: Losartan Potassium 50 MG Tablet PO (08:18)
[2020-07-05] MEDS: amLODIPine 5 MG Tablet PO (08:19)
[2020-07-05] MEDS: Calcium Carbonate 500 MG Tablet PO (08:19)
[2020-07-05] MEDS: clonazePAM 0.5 MG Tablet PO (09:24)
--- NOTE | 2020-07-05 20:14 | PCM.DC.SUM ---
Discharge Date and Diagnosis - Problem List Patient Problems: Active and Suspected Problems (Last Reviewed 06/26/20 @ 13:[address] Jean Claude Ibanez DO) COVID-19 (Acute) Hypoxia (Acute) Date of Admission: 06/26/20 Date of Discharge: 07/05/20 - Primary Discharge Diagnosis Acute Problems: Active Problems (Last Reviewed 06/26/20 @ 13:[address] Jean Claude Ibanez DO) #1 bilateral Covid pneumonia #2 hypoxia secondary to #1 #3 essential hypertension #4 hyperlipidemia - Secondary Discharge Diagnosis Chronic Problems: Chronic Problems (Last Reviewed 06/26/20 @ 13:[address] Jean Claude Ibanez DO) Essential (primary) hypertension (Chronic) Hyperlipidemia (Chronic) Hospital Course and Treatment Operations: None Procedures: None Summary of Care Provided: The patient is a 79 year old F who was seen in the emergency room at [facility] with fever, nausea, vomiting, diarrhea, and weakness. Patient's had been sick for approximately 2 weeks and they were tested for COVID-19 recently and came back positive. Her test was positive on 06/23/2020. Patient's did not need to get admitted. Work-up in the emergency room included a chest x-ray which showed clear lung schumacher, CBC showed a white blood cell count of 2.9, comprehensive metabolic panel was essentially within normal limits, patient was not initially hypoxic in the emergency room but was subsequently found to be 85% on room air at rest and placed on oxygen. She was admitted to [place] [address], she was placed on IV remdesivir and oral dexamethasone and seen by physical therapy. Patient remained hypoxic in the hospital but did not require high flow oxygen. Patient gradually improved during her hospitalization. On 07/05/2020, patient was seen and examined: On examination she appeared in good health and spirits, she does not appear to be in any distress. Vital signs as documented. Skin warm and dry and without overt rashes. Neck without JVD, thyroid appears normal, trachea is midline, neck is supple. Lungs clear, normal air movement was noted. Heart exam notable for regular rhythm, normal sounds and absence of murmurs, rubs or gallops. Abdomen unremarkable and without evidence of organomegaly, masses, or abdominal aortic enlargement, bowel sounds are present in all 4 quadrants, no abdominal tenderness was noted. Extremities nonedematous, no cyanosis was noted, no clubbing was noted. Neuro: Cranial nerves II through XII are grossly intact, no focal motor deficits were noted, sensation to light touch and pinprick is intact, motor exam 5/5 throughout. Psych: Patient is alert and oriented x3, she does not appear anxious or depressed, she does not appear agitated. Patient appears stable for discharge on 07/05/2020, she did not require supplemental oxygen at home at the time of discharge. Patient Problems: Active and Suspected Problems (Last Reviewed 06/26/20 @ 13:[address] Jean Claude Ibanez, DO) COVID-19 (Acute) Hypoxia (Acute) - Physical Exam Vitals/I&O's: Vital Signs Temp Pulse Resp BP Pulse Ox 97.9 F 64 18 142/52 H 94 07/05/20 08:13 07/05/20 08:18 07/05/20 08:13 07/05/20 08:13 07/05/20 08:13 Oxygen Flow Rate (L/min) 1 Oxygen Delivery Method Room Air Weight: 85.548 kg Body Mass Index (BMI) 29.5 Intake and Output for Last 24 Hours 07/03/20 07/04/20 07/05/20 23:59 23:59 23:59 Intake Total 540 / 540 120 / 360 240 / 240 Output Total 300 / 300 Balance 540 / 540 120 / 60 -60 / -60 Discharge Activity: Return to Normal Activity Weight Bearing Status: Full weight bearing Home Medications: Medications to take at Discharge Aspirin [Aspirin, Baby] 81 mg PO DINNER 05/26/14 Cetirizine HCl [Zyrtec] 10 mg PO DAILY 05/26/14 Clonazepam [Klonopin] 0.5 mg PO BID 05/26/14 baclofen 10 mg tablet 10 mg PO TID PRN tab 08/23/18 amlodipine 5 mg tablet 5 mg PO DAILY #90 tab 08/28/19 losartan 50 mg tablet 50 mg PO BID #180 tab 08/28/19 metoprolol succinate 25 mg tablet,extended release 24 hr 25 mg PO BID #180 tab 08/28/19 simvastatin 20 mg tablet 20 mg PO QHS #90 tab 08/28/19 calcium carbonate 200 mg calcium (500 mg) chewable tablet 200 mg PO BID 11/03/20 cholecalciferol (vitamin D3) 1,250 mcg (50,000 unit) capsule 50,000 unit PO .QOWeek cap 03/23/20 Primary Care Physician: Valerie Garcia PA [Primary Care Provider] - Please follow up with your Primary Care Physician in: in 2 weeks Disposition: Home Minutes spent on discharge:: 32 Patient Condition:: Stable Medical Necessity - Tobacco Use Smoking Status: Never smoker Meaningful Use Info Meaningful Use Diagnoses (Choose all that apply): None applicable Inpatient E&M: 86755 Disch Hosp
--- NOTE | 2020-07-22 10:25 | PN ---
Patient called wondering about help with her hospital bill. It does not appear her ins has paid yet, but will refer to PFS.
== END 2020-07-05 09:40 | disposition home or self-care (01) | DRG 177 ==
LOC: ED 13:01 → MS2 13:55
PROVIDERS: Emergency Provider Emergency Medicine; PCP Physician Assistant; Visit Provider Internal Medicine
DX: U07.1 COVID-19 (principal); J12.82 Pneumonia due to coronavirus disease 2019; R09.02 Hypoxemia; I10 Essential (primary) hypertension; E78.5 Hyperlipidemia, unspecified; R79.1 Abnormal coagulation profile; Z79.82 Long term (current) use of aspirin; Z79.899 Other long term (current) drug therapy
CPT/HCPCS: 36415; 71045; 71275; 80053; 83605; 84075; 85025; 85027; 85379; 87040; 93005; 94640; 97110; 97162; 97166; 97530; 97535; 97803; 99285; J7040; J7050; Q9967; A4216

== ENCOUNTER → 2021-04-05 12:13 | Outpatient (CLI) | payer MEDICARE, SELFPAY ==
--- NOTE | 2021-04-05 12:23 | BD_ITS ---
STUDY: DUAL ENERGY X-RAY ABSORPTIOMETRY / DXA REASON FOR EXAM: Female, 80 years old. M810. The patient is postmenopausal. TECHNIQUE: Bone Mineral Density (BMD) measurements of lumbar spine and bilateral hips were obtained. COMPARISON: Comparison is made with prior study dated 01/22/2013. FINDINGS: Lumbar Spine (L1-L4): g/cm2 (0.910) / T-score (-1.2) / Z-score (1.4) Findings are suggestive of osteopenia with a low fracture risk. Left Femur Total: g/cm2 (0.820) / T-score (-1.0) / Z-score (1.1) Left Femoral Neck: g/cm2 (0.602) / T-score (-2.2) / Z-score (0.1) Right Femur Total: g/cm2 (0.785) / T-score (-1.3) / Z-score (0.8) Right Femoral Neck: g/cm2 (0.539) / T-score (-2.8) / Z-score (0.5) The T-Scores on the most recent prior examination were: Lumbar Spine (L1-L4): There has been improvement of bone density since the previous examination. Left Femur Total: which represents an improvement of 5.9%. Right Femur Total: which represents an improvement of 2.1%. BD/Dexa Bone Density Study IMPRESSION: The patient is considered osteoporotic as outlined below according to World [employer] Organization (WHO) criteria with a high fracture risk. There has been improvement of bone density since the previous examination. Reference Information: The T-score is the number of standard deviations above or below the standard which is normal for young adults at their peak bone mineral density. The World Health Organization (WHO) interprets the T-scores as follows: Above -1 Normal bone density Between -1 and -2.5 Osteopenia Equal to / or below -2.5 Osteoporosis As a practical clinical guideline, osteopenia may be graded as follows: Mild -1 through -1.5 Moderate -1.6 through -2.0 Severe -2.1 through -2.4 The Z-score is the number of standard deviations above or below age-matched controls. A Z-score of less than -1.5 would be considered abnormal. References: 1. NIH Osteoporosis and Related Bone Diseases www osteo.org 2. International Society for Clinical Densitometry www iscd.org 3. National Osteoporosis Foundation www nof.org Electronically Signed: Ajay Carter MD at 14:56 EST , Service support ,
== END ==
PROVIDERS: PCP Physician Assistant; Referring Provider Physician Assistant; Visit Provider Physician Assistant
DX: M81.0 Age-related osteoporosis without current pathological fracture (principal); M51.36 Other intervertebral disc degeneration, lumbar region; M17.31 Unilateral post-traumatic osteoarthritis, right knee; M48.062 Spinal stenosis, lumbar region with neurogenic claudication; Z78.0 Asymptomatic menopausal state
CPT/HCPCS: 77080

== ENCOUNTER → 2024-03-10 | Outpatient (CLI) | payer MEDICARE, SELFPAY ==
[2024-03-10 07:52] LABS: Absolute Lymphocyte Count 2.06 X10^3/uL (0.83-4.51); Absolute Neutrophil Count 3.5 X10^3/uL (2.0-7.7); Basophil# 0.03 X10^3/uL; Basophil% 0.5 % (0-1); Eosinophil# 0.11 X10^3/uL; Eosinophils% 1.8 % (0-5); Hematocrit 39.6 % (37-47); Hemoglobin 13.2 g/dL (12.0-15.0); Lymphocyte # 2.06 X10^3/ul (0.83-4.51); Lymphocyte % 33.1 % (19-41); Mean Corp Hgb Conc 33.3 g/dL (32-36); Mean Platelet Vol. 9.9 fl (6.2-12.0); Monocyte# 0.51 X10^3/uL; Monocyte% 8.2 % (0-10); NRBC Flagged by Analyzer 0 % (0-5); Neutrophil % 56.2 % (47-70); Platelet Count 203 K/mm3 (150-450); RBC Distribution Width CV 12.5 % (11.6-14.6); RBC Distribution Width SD 41.3 fl (35.1-43.9); White Blood Count 6.2 K/mm3 (4.4-11.0)
[2024-03-10 08:17] LABS: Vitamin D,25 Hydroxy 36.3 ng/mL
[2024-03-10 08:21] LABS: Hemoglobin A1c 5.8 % (3.8-5.6)
[2024-03-10 08:25] LABS: ALB/GLOB Ratio 1.2 RATIO (0.9-2.4); AST(SGOT) 15 U/L (15-37); Alanine Aminotransfer ALT/SGPT 23 U/L (13-56); Alkaline Phosphatase 93 U/L (45-117); Anion Gap 9 (5-15); BUN 18 mg/dL (7-18); BUN/Creat Ratio 19.7 RATIO (10-20); Calcium,Total 9.4 mg/dL (8.5-10.1); Chloride 103 mmol/L (98-107); Cholesterol 197 mg/dL (200); Creatinine, Serum 0.92 mg/dL (0.55-1.02); EST Glomerular Filtration Rate 62 mL/min (>60); Est Glom Filt Rate - Afr Amer 75 mL/min (>60); Globulin 3.3 g/dL (2.2-4.2); Glucose 106 mg/dL (74-106); High Density Lipoprotein 67 mg/dL; Potassium 3.9 mmol/L (3.5-5.1); Protein, Total 7.3 g/dL (6.4-8.2); Sodium Level 137 mmol/L (136-145); Triglycerides 148 mg/dL; Very Low Density Lipoprotein 30 mg/dL (5-40)
== END | disposition home or self-care (01) ==
PROVIDERS: PCP Clinical Nurse Specialist Adult Health; Referring Provider Clinical Nurse Specialist Adult Health; Visit Provider Clinical Nurse Specialist Adult Health
DX: I10 Essential (primary) hypertension (principal); E55.9 Vitamin D deficiency, unspecified; E78.2 Mixed hyperlipidemia; R73.03 Prediabetes
CPT/HCPCS: 36415; 80053; 80061; 82306; 83036; 84443; 85025

== ENCOUNTER → 2024-10-20 | Outpatient (CLI) | payer MEDICARE, SELFPAY ==
--- NOTE | 2024-10-20 12:39 | CDU_ITS ---
Reason For Study Reason For Study: Amaurosis Fugax Rt. Velocities/BP Lt. Velocities/BP Prox CCA 76.0/12.2 cm/sec. Prox CCA 88.2/11.4 cm/sec. Mid CCA 71.1/10.9 cm/sec. Mid CCA 88.2/11.4 cm/sec. Dist CCA 78.5/15.8 cm/sec. Dist CCA 97.0/9.2 cm/sec. Prox ICA 87.1/14.6 cm/sec. Prox ICA 94.2/13.0 cm/sec. Mid ICA 96.9/9.7 cm/sec. Mid ICA 89.8/10.8 cm/sec. Dist ICA 73.5/9.7 cm/sec. Dist ICA 113.9/17.3 cm/sec. Rt. ICA/CCA = 1.4. Lt. ICA/CCA = 1.3. Prox ECA 349.6/20.0 cm/sec. Prox ECA 146.2/5.4 cm/sec. Rt. Vert. 35.5/7.2 cm/sec. Lt. Vert. 56.6/7.4 cm/sec. Right Extracranial There is heterogeneous, irregular atherosclerotic plaque noted in the right common carotid artery. There is heterogeneous, irregular atherosclerotic plaque noted in the right internal carotid artery. The distal right internal carotid artery is not well visualized. There is heterogeneous, irregular atherosclerotic plaque noted in the right external carotid artery. Antegrade flow is noted in the right vertebral artery. Left Extracranial There is heterogeneous, irregular atherosclerotic plaque noted in the left common carotid artery. There is heterogeneous, irregular atherosclerotic plaque noted in the left internal carotid artery. The distal left internal carotid artery is not well visualized. There is intimal thickening but no significant atherosclerotic plaque noted in the left external carotid artery. Antegrade flow is noted in the left vertebral artery. Procedure Carotid Duplex 40884. This is a Carotid Duplex examination using B-mode, color flow and specral Doppler. The exam was diagnostic. Exam performed in department. VL/Carotid Duplex Ultrasound Interpretation Summary Mild (<50%) stenosis right extracranial internal carotid. Mild (<50%) stenosis left extracranial internal carotid. Flow within the vertebral arteries is antegrade bilaterally. There is evidence of st enosis of the right external carotid artery of >50%. Ordering Physician: Mulugeta Lind Referring Physician: Connie Marti Performed By: Luis Miguel Christie RVT
== END | disposition home or self-care (01) ==
LOC: CVS 12:37
PROVIDERS: PCP Clinical Nurse Specialist Adult Health; Referring Provider Ophthalmology; Visit Provider Ophthalmology
DX: G45.3 Amaurosis fugax (principal)
CPT/HCPCS: 93880

== ENCOUNTER → 2025-03-23 | Outpatient (CLI) | payer MEDICARE, SELFPAY ==
[2025-03-23 08:08] LABS: Mucous, Urine 0 SEEN /hpf (<or=2+); Red Blood Cells-Urine 0 SEEN /hpf (0-5); Squamous Epithelial Cells - UA 0 SEEN /hpf (5-10)
[2025-03-23 09:18] LABS: Hematocrit 40.8 % (37-47); Hemoglobin 13.4 g/dL (12.0-15.0); Immature Granulocytes Count 0.020 X10^3/uL (0.0-0.0); Mean Corp Hgb Conc 32.8 g/dL (32-36); Mean Corpuscular Volume 90.1 fL (81-99); Mean Platelet Vol. 10.1 fl (6.2-12.0); NRBC Flagged by Analyzer 0 % (0-5); Platelet Count 182 K/mm3 (150-450); RBC Distribution Width CV 12.4 % (11.6-14.6); RBC Distribution Width SD 40.6 fl (35.1-43.9); Red Blood Count 4.53 M/mm3 (4.2-5.4); White Blood Count 6.6 K/mm3 (4.4-11.0)
[2025-03-23 10:25] LABS: AST(SGOT) 19 U/L (<=31); Alanine Aminotransfer ALT/SGPT 17 U/L (<=34); Albumin, Serum 4.4 g/dL (3.4-4.8); Alkaline Phosphatase 94 U/L (35-104); Anion Gap 12 (5-15); BUN 19 mg/dL (4-19); BUN/Creat Ratio 22.5 RATIO (10-20); Calcium,Total 9.7 mg/dL (7.6-11.0); Carbon Dioxide 23.6 mmol/L (21.0-32.0); Chloride 102 mmol/L (98-108); Cholesterol 193 mg/dL (<=200); Globulin 2.7 g/dL (2.2-4.2); Glucose 103 mg/dL (70-99); Low Density Lipoprotein Calc. 108 mg/dL; Potassium 4.1 mmol/L (3.3-5.1); Triglycerides 159 mg/dL; Very Low Density Lipoprotein 32 mg/dL (5-40); Vitamin D,25 Hydroxy 32.4 ng/mL (30-100); cholesterol:hdl ratio screen 3.36
[2025-03-23 11:35] LABS: Color, Urine Yellow (Yellow); Glucose, Dipstick Normal (Normal); Ketone-Dipstick Negative (Negative); Leukocyte Esterase-Dipstick 500 /ul (Negative); Nitrite-Dipstick Positive (Negative); Occult Blood-Urine 10 /ul (Negative); Protein-Dipstick 15 mg/dl (Negative); Specific Gravity, Urine 1.020 (1.002-1.030); Urine Bilirubin Dipstick Negative (Negative)
[2025-03-23 11:56] LABS: Creatinine, Urine (random) 189.00 mg/dL (28.00-217.00); Microalbumin,Random Urine 27.5 mg/L (<20 mg/L)
[2025-03-23 11:59] LABS: Barbiturate Urine NEGATIVE (< 200 ng/mL); Benzodiazepine Urine PRESUMPTIVE POSITIVE (< 200 ng/mL); PCP Urine NEGATIVE (< 25 ng/mL); THC Urine NEGATIVE (< 50 ng/mL)
== END | disposition home or self-care (01) ==
LOC: LAB 08:00
PROVIDERS: PCP Clinical Nurse Specialist Adult Health; Referring Provider Clinical Nurse Specialist Adult Health; Visit Provider Clinical Nurse Specialist Adult Health
DX: N39.0 Urinary tract infection, site not specified (principal); I10 Essential (primary) hypertension; E55.9 Vitamin D deficiency, unspecified; E78.2 Mixed hyperlipidemia; F41.1 Generalized anxiety disorder; R73.03 Prediabetes
CPT/HCPCS: 36415; 80053; 80061; 80307; 81001; 82043; 82306; 82570; 83036; 85025; 87077; 87086; 87088; 87186